=== PATIENT | female | born 1945 | race Caucasian/White ===

== ENCOUNTER 2017-02-16 17:13 | Inpatient (IN) | payer OTHER ==
[~2017-02-16] VITALS: Ht 167.6 cm; Wt 79.1 kg
[2017-02-16] MEDS ORDERED: SODIUM CHLORIDE 0.9% 1000ML 1,000 ML IV STA (17:22)
[2017-02-16] MEDS ORDERED: ONDANSETRON INJ 2 MG/ML 2 ML VIAL IV STA (17:22)
--- NOTE | 2017-02-16 17:53 | DIAGNOSTIC IMAGING REPORT ---
CHEST ONE VIEW PORTABLE CLINICAL HISTORY: Evaluate Fever/Sepsis dyspnea COMPARISON STUDY: No previous studies for comparison. FINDINGS: Right upper lobe infiltrate. Mild fullness mid mediastinum. Left lung is clear. Diaphragms smooth. IMPRESSION: Right upper lobe infiltrate Electronically signed by: Atif Leach M.D. 02/16/2017 5:52 PM Dictated Date/Time: 02/16/2017 5:52 PM
--- NOTE | 2017-02-16 18:06 | DIAGNOSTIC IMAGING REPORT ---
HEAD CT NONCONTRAST CT DOSE: 614.27 mGy.cm HISTORY: Fever Evaluate Fever/Sepsis TECHNIQUE: Multiaxial CT images of the head were performed without the use of intravenous contrast. Comparison: None. Findings: The paranasal sinuses and mastoid air cells are clear. Components of moderate chronic small vessel change. No acute intracranial hemorrhage. Ventricular system is midline. Impression: Age-related chronic small vessel change. No acute process. Electronically signed by: Atif Leach M.D. 02/16/2017 6:05 PM Dictated Date/Time: 02/16/2017 6:04 PM
[2017-02-16 18:14] LABS: BASO % 0.1 %; BASO ABS # 0.01 K/uL (0-0.2); EOS % 0.3 %; HEMATOCRIT 43.9 % (37-47); IG% 0.3 %; LYMPH % 3.5 %; LYMPH ABS # 0.66 K/uL (1.2-3.4); MEAN CELL VOLUME 88.5 fL (80-100); MEAN CORPUSCULAR HEMOGLOBIN 29.2 pg (25-34); MEAN PLATELET VOLUME 9.2 fL (7.4-10.4); MONO % 2.5 %; NEUT % 93.3 %; PLATELET COUNT 271 K/uL (130-400); RED BLOOD COUNT 4.96 M/uL (4.2-5.4); WHITE BLOOD COUNT 18.84 K/uL (4.8-10.8)
[2017-02-16] MEDS ORDERED: METOPROLOL TARTRATE 1 MG/ML VIAL IV STA (18:22)
[2017-02-16] MEDS ORDERED: PIPERACILLIN/TAZOBACTAM 3.375 GM/100ML D5W IV STA (18:25)
[2017-02-16 18:35] LABS: ALT/SGPT 26 U/L (12-78); ANISOCYTOSIS PRESENT; BLOOD UREA NITROGEN 15 mg/dl (7-18); BUN/CREATININE RATIO 8.8 (10-20); CALCIUM 9.8 mg/dl (8.5-10.1); CARBON DIOXIDE 25 mmol/L (21-32); CHLORIDE 103 mmol/L (98-107); COMPLETE YES; GLUCOSE 126 mg/dl (70-99); MAGNESIUM 1.7 mg/dl (1.8-2.4); POTASSIUM 3.9 mmol/L (3.5-5.1); SODIUM 138 mmol/L (136-145)
[2017-02-16 18:42] LABS: ALKALINE PHOSPHATASE 130 U/L (45-117); AST/SGOT 66 U/L (15-37)
[2017-02-16 18:43] LABS: PARTIAL THROMBOPLASTIN RATIO 1.1
[2017-02-16] MEDS ORDERED: NF656 TD (18:47)
[2017-02-16] MEDS ORDERED: ATOR-26 PO (18:47)
[2017-02-16] MEDS ORDERED: ACET-1311 PO (18:47)
[2017-02-16] MEDS ORDERED: DOCU100C31 PO (18:47)
[2017-02-16] MEDS ORDERED: PHEN300C PO (18:47)
[2017-02-16] MEDS ORDERED: INSU100I23 SQ (18:47)
[2017-02-16] MEDS ORDERED: RANI150T3 PO (18:47)
[2017-02-16 19:41] LABS: URINE APPEARANCE CLOUDY (CLEAR); URINE BILIRUBIN NEG (NEG); URINE COLOR YELLOW; URINE EPITHELIAL CELL AUTO >30 /lpf (0-5); URINE NITRITE NEG (NEG); URINE SPECIFIC GRAVITY 1.021 (1.000-1.030); UROBILINOGEN NEG (NEG); ZZURINE CULT IF INDIC CATH NO
--- NOTE | 2017-02-16 19:41 | EMERGENCY ROOM VISIT NOTE ---
History Report prepared by Neil: Shun Cole Under the Supervision of: Dr. Russ Silverman D.O. First contact with patient: 17:14 Chief Complaint: UNRESPONSIVE Stated Complaint: UNRESPONSIVE History of Present Illness The patient is a 71 year old female who presents to the Emergency Room via EMS with unresponsiveness that began 2 hours ago. This history is limited secondary to the patient's altered mental status. Per EMS, the patient recently got into [place]. She was at home with her neighbor when she became unresponsive. On the way to the hospital, she had an episode of emesis. This emesis was described as not very digested; however, she had not eaten since yesterday. According to the EMS staff, when she is moved, she tends to "jump," but is unresponsive other than that. She is currently hypertensive, tachycardic, hyperventilating, and febrile. At baseline, the patient is able to talk and take care of herself. She is a DNR patient who would like comfort measures only. She has a past medical history of acute stage four kidney cancer and diabetes. Source of History: EMS History Limited By: AMS Onset: 2 hours ago Position: other (global) Symptom Intensity: moderate Quality: other (Unresponsiveness) Timing: constant Associated Symptoms: + fevers Note: She is tachycardic, hyperventilating, and hypertensive. Review of Systems ROS limited secondary to the patient's altered mental status. Past Medical & Surgical Medical Problems: (1) Cancer of kidney (2) Diabetes (3) Respiratory failure, acute (4) Sepsis Family History Omitted secondary to age. Social History Smoking Status: Unknown if Ever Smoked Smokeless Tobacco Use: Unknown Occupation Status: retired Social History: Unable to obtain secondary to unresponsiveness. Current/Historical Medications Scheduled Atorvastatin (Lipitor), 80 MG PO DAILY Docusate Sodium (Docusate Sodium), 100 MG PO BID Insulin Glargine (Basaglar Kwikpen), 18 UNITS SQ HS Lidocaine (Lidoderm Patch 5%), 1 PATCH TD DAILY Phenytoin Sodium Extended (Phenytek), 300 MG PO HS Ranitidine Hcl (Zantac), 150 MG PO BID Scheduled PRN Acetaminophen (Tylenol), 325 MG PO Q6 PRN for Pain Allergies Coded Allergies: Morphine (Verified Allergy, Unknown, 0, 02/16/17) Physical Exam Vital Signs Date Time Temp Pulse Resp B/P (MAP) Pulse Ox O2 Delivery O2 Flow Rate FiO2 02/16/17 20:05 114 20 133/77 99 Nasal Cannula 4.0 02/16/17 19:02 113 24 127/90 94 Nasal Cannula 3.0 02/16/17 18:58 39.0 02/16/17 18:46 138 154/82 02/16/17 18:29 138 02/16/17 17:32 92 Room Air 02/16/17 17:23 37.8 140 24 180/101 92 Room Air Physical Exam CONSTITUTIONAL/VITAL SIGNS: Reviewed / noted above. GENERAL: Non-toxic in appearance. No acute distress. INTEGUMENTARY: Warm, dry, and [place]. HEAD: Normocephalic. EYES: without scleral icterus or trauma. ENT/OROPHARYNX: clear and moist. LYMPHADENOPATHY/NECK: Is supple without lymphadenopathy or meningismus. RESPIRATORY: Lungs clear and equal. CARDIOVASCULAR: Regular rate and rhythm. GI/ABDOMEN: Soft and nontender. No organomegaly or pulsatile mass. No rebound or guarding. Normal bowel sounds. EXTREMITIES: Warm and well perfused. BACK: No CVA tenderness. NEUROLOGICAL: Awake. Opens eyes spontaneously. Does not follow commands. Appears to be generally weak. Exam is limited secondary to inability to follow commands. Minimal verbal response from the patient. PSYCHIATRIC: normal affect. MUSCULOSKELETAL: Normally developed with good muscle tone. Medical Decision & Procedures ER Provider Diagnostic Interpretation: Radiology results as stated below per my review and radiologist interpretation: HEAD CT NONCONTRAST CT DOSE: 614.27 mGy.cm HISTORY: Fever Evaluate Fever/Sepsis TECHNIQUE: Multiaxial CT images of the head were performed without the use of intravenous contrast. Comparison: None. Findings: The paranasal sinuses and mastoid air cells are clear. Components of moderate chronic small vessel change. No acute intracranial hemorrhage. Ventricular system is midline. Impression: Age-related chronic small vessel change. No acute process. Electronically signed by: Atif Leach M.D. 02/16/2017 6:05 PM Dictated Date/Time: 02/16/2017 6:04 PM CHEST ONE VIEW PORTABLE CLINICAL HISTORY: Evaluate Fever/Sepsis dyspnea COMPARISON STUDY: No previous studies for comparison. FINDINGS: Right upper lobe infiltrate. Mild fullness mid mediastinum. Left lung is clear. Diaphragms smooth. IMPRESSION: Right upper lobe infiltrate Electronically signed by: Atif Leach M.D. 02/16/2017 5:52 PM Dictated Date/Time: 02/16/2017 5:52 PM Laboratory Results 02/16/17 17:54 Red Blood Count 4.96, Mean Corpuscular Volume 88.5, Mean Corpuscular Hemoglobin 29.2, Mean Corpuscular Hemoglobin Concent 33.0, Mean Platelet Volume 9.2, Neutrophils (%) (Auto) 93.3, Lymphocytes (%) (Auto) 3.5, Monocytes (%) (Auto) 2.5, Eosinophils (%) (Auto) 0.3, Basophils (%) (Auto) 0.1, Neutrophils # (Auto) 17.57, Lymphocytes # (Auto) 0.66, Monocytes # (Auto) 0.48, Eosinophils # (Auto) 0.06, Basophils # (Auto) 0.01 02/16/17 17:54 Test 02/16/17 17:54 02/16/17 18:06 02/16/17 19:02 02/16/17 19:51 White Blood Count 18.84 K/uL (4.8-10.8) Red Blood Count 4.96 M/uL (4.2-5.4) Hemoglobin 14.5 g/dL (12.0-16.0) Hematocrit 43.9 % (37-47) Mean Corpuscular Volume 88.5 fL (80-100) Mean Corpuscular Hemoglobin 29.2 pg (25-34) Mean Corpuscular Hemoglobin Concent 33.0 g/dl (32-36) Platelet Count 271 K/uL (130-400) Mean Platelet Volume 9.2 fL (7.4-10.4) Neutrophils (%) (Auto) 93.3 % Lymphocytes (%) (Auto) 3.5 % Monocytes (%) (Auto) 2.5 % Eosinophils (%) (Auto) 0.3 % Basophils (%) (Auto) 0.1 % Neutrophils # (Auto) 17.57 K/uL (1.4-6.5) Lymphocytes # (Auto) 0.66 K/uL (1.2-3.4) Monocytes # (Auto) 0.48 K/uL (0.11-0.59) Eosinophils # (Auto) 0.06 K/uL (0-0.5) Basophils # (Auto) 0.01 K/uL (0-0.2) RDW Standard Deviation 68.3 fL (36.4-46.3) RDW Coefficient of Variation 21.8 % (11.5-14.5) Immature Granulocyte % (Auto) 0.3 % Immature Granulocyte # (Auto) 0.06 K/uL (0.00-0.02) Anisocytosis PRESENT Prothrombin Time 11.0 SECONDS (9.0-12.0) Prothromb Time International Ratio 1.0 (0.9-1.1) Activated Partial Thromboplast Time 28.2 SECONDS (21.0-31.0) Partial Thromboplastin Ratio 1.1 Anion Gap 10.0 mmol/L (3-11) Estimated GFR () 34.8 Estimated GFR (Non- 30.0 BUN/Creatinine Ratio 8.8 (10-20) Lactic Acid Level 1.4 mmol/L (0.4-2.0) Calcium Level 9.8 mg/dl (8.5-10.1) Magnesium Level 1.7 mg/dl (1.8-2.4) Total Bilirubin 0.3 mg/dl (0.2-1) Direct Bilirubin 0.1 mg/dl (0-0.2) Aspartate Amino Transf (AST/SGOT) 66 U/L (15-37) Alanine Aminotransferase (ALT/SGPT) 26 U/L (12-78) Alkaline Phosphatase 130 U/L (45-117) Ammonia < 10.0 umol/L (11-32) Total Creatine Kinase 26 U/L (26-192) Creatine Kinase MB < 0.5 ng/ml (0.5-3.6) Creatine Kinase MB Ratio (0-3.0) Troponin I 0.020 ng/ml (0-0.045) Total Protein 8.0 gm/dl (6.4-8.2) Albumin 2.7 gm/dl (3.4-5.0) Lipase 83 U/L (73-393) Thyroid Stimulating Hormone (TSH) 2.090 uIu/ml (0.300-4.500) Phenytoin (Dilantin) Level 1.9 mcg/mL (10-20) Urine Color YELLOW Urine Appearance CLOUDY (CLEAR) Urine pH 5.0 (4.5-7.5) Urine Specific [place] 1.021 (1.000-1.030) Urine Protein 2+ (NEG) Urine Glucose (UA) NEG (NEG) Urine Ketones 1+ (NEG) Urine Occult Blood NEG (NEG) Urine Nitrite NEG (NEG) Urine Bilirubin NEG (NEG) Urine Urobilinogen NEG (NEG) Urine Leukocyte Esterase NEG (NEG) Urine WBC (Auto) 1-5 /hpf (0-5) Urine RBC (Auto) 0-4 /hpf (0-4) Urine Hyaline Casts (Auto) 1-5 /lpf (0-5) Urine Epithelial Cells (Auto) >30 /lpf (0-5) Urine Bacteria (Auto) NEG (NEG) Laboratory results as stated above per my review. Medications Administered Medications (Trade) Dose Ordered Sig/Toney Route Start Time Stop Time Status Last Admin Dose Admin Sodium Chloride 1,000 ml @ 999 mls/hr Q1H1M STAT IV 02/16/17 17:22 02/16/17 18:22 DC 02/16/17 18:45 999 MLS/HR Ondansetron HCl (Zofran Inj) 4 mg NOW STAT IV 02/16/17 17:22 02/16/17 17:24 DC 02/16/17 18:45 4 MG Metoprolol Tartrate (Lopressor Iv) 5 mg NOW STAT IV 02/16/17 18:22 02/16/17 18:23 DC 02/16/17 18:46 5 MG Piperacillin Sod/ Tazobactam Sod (Zosyn Iv) 3.375 gm NOW STAT IV 02/16/17 18:25 02/16/17 18:26 DC 02/16/17 19:04 3.375 GM Acetaminophen 100 ml @ 400 mls/hr TODAY@2000 IV 02/16/17 20:00 02/16/17 23:59 02/16/17 20:20 400 MLS/HR ECG Indication: altered mental status Rate (beats per minute): 140 Rhythm: sinus tachycardia Findings: T-wave inversion (Lateral), no acute ischemic change, no ectopy ED Course 1714: Previous medical records were reviewed. The patient was evaluated in room B12B. A complete history and physical examination was performed. 1722: Ordered Zofran Inj 4 mg IV, Sodium Chloride 1000 ml @ 999 mls/hr IV 1750: I was informed by the nurse that the family has arrived and updated the patient's story. She was fine this morning. Everything was at baseline and normal. Her soon said earlier, she drank some soda, and took a nap. He noticed she was shaking in bed, so he woke her up. She then said she was cold, so he got her a blanket. 1821: Ordered Lopressor Iv 5 mg IV 1824: Ordered Zosyn Iv 3.375 IV 1941: On reevaluation, the patient is stable. I discussed the results and findings with her family. They verbalized agreement of the treatment plan. I spoke with Dr. Flood of the [facility]. The patient will be evaluated for further management and care. Medical Decision Differential diagnosis: Etiologies such as metabolic, infection, hypoglycemia, electrolyte abnormalities , cardiac sources, intracerebral event, toxicologic, neurologic, as well as others were entertained. Medication Reconciliation: I attest that I have personally reviewed the patient' s current medication list. This is a 71-year-old female who presents to the ED with a chief complaint of altered mental status. According to EMS, the patient is normally awake and alert and functioning. The patient is currently living with family locally. The patient just got here 2 days ago. Today she went to see Dr. 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 The patient was awake, alert and oriented this morning. The patient normally gets around with a walker. This afternoon, the patient had some riders and was tired. She wanted to rest. She then had an episode of emesis and was altered since that time. She is brought here by EMS. Prehospital blood sugar was normal. The patient has a fever here 39. She opens her eyes spontaneously but does not respond verbally does not follow commands. Lungs are diminished. Heart rate was tachycardic. Abdomen soft and nontender. EKG showed a sinus tach at a rate of 140. This improved after 5 mg IV Lopressor. Her blood pressure was hypertensive. Chest x-ray shows findings suggestive of a right lower lobe infiltrate. A CT scan of the brain did not show acute process. The CBC was 18.8. Troponin is negative. The patient's urine is pending. The patient was treated with IV fluids and IV Zosyn and IV Zofran and she will be seen by the hospitalist for further inpatient evaluation and care.. Consults Time Called: 1939 Consulting Physician: Dr. Aleena Alvarez Hospitalist Returned Call: 1941 He will be evaluating the patient for further care and management. Impression Primary Impression: Pneumonia Additional Impressions: Fever Altered mental state Scribe Attestation The scribe's documentation has been prepared under my direction and personally reviewed by me in its entirety. I confirm that the note above accurately reflects all work, treatment, procedures, and medical decision making performed by me. Departure Information Dispostion Being Evaluated By Hospitalist Patient Instructions [facility] Problem Qualifiers
[2017-02-16 19:42] LABS: MANUAL MICROSCOPIC REQUIRED? NO; REVIEW REQ? NO
[2017-02-16] MEDS ORDERED: ACETAMINOPHEN IV 100 ML IV SCH (20:00)
[2017-02-16 21:00] LABS: ALLEN TEST POS (POS); ARTERIAL BLD GAS O2 SATURATION 92.4 % (90-95); ARTERIAL BLOOD GAS BASE EXCESS 0.3 mEq/L (-9-1.8); ARTERIAL BLOOD GAS HCO3 24 mmol/L (19-24); ARTERIAL BLOOD GAS PO2 66 mm/Hg (80-95); ARTERIAL BLOOD GAS pH 7.43 (7.35-7.45); O2 ADMINISTRATION ROOM AIR
[2017-02-16] MEDS ORDERED: INSULIN GLARGINE SOLOSTAR 100 UNITS/ML 3 ML PEN SQ ONE (21:04)
[2017-02-16] MEDS ORDERED: LEVALBUTEROL/IPRATROPIUM NEB INH STA (21:04)
[2017-02-16] MEDS ORDERED: INSULIN ASPART 100 UNITS/ML 3 ML PEN SC ONE (21:13)
[2017-02-16] MEDS ORDERED: NSS + 20MEQ KCL 1000ML 1,000 ML IV ONE (21:15)
[2017-02-16] MEDS ORDERED: LEVALBUTEROL/IPRATROPIUM NEB INH PRN (21:15)
[2017-02-16] MEDS ORDERED: DEXTROSE 50% 50 ML SYR IV PRN ×3 (21:15)
[2017-02-16] MEDS ORDERED: ACETAMINOPHEN 325 MG TAB PO PRN ×2 (21:15)
[2017-02-16] MEDS ORDERED: GLUCOSE 40% GEL 15 GM TUBE PO PRN ×3 (21:15)
[2017-02-16] MEDS ORDERED: HYDROmorphone INJ 0.5 MG/0.5 ML SYR IV PRN (21:15)
[2017-02-16] MEDS ORDERED: OXYCODONE/ACETAMINOPHEN 5-325 TAB PO PRN (21:15)
[2017-02-16] MEDS ORDERED: GLUCOSE 10 TABS/TUBE PO PRN ×3 (21:15)
[2017-02-16] MEDS ORDERED: GLUCAGON FOR INJ 1 MG VIAL SQ PRN ×3 (21:15)
[2017-02-16] MEDS ORDERED: ONDANSETRON INJ 2 MG/ML 2 ML VIAL IV PRN (21:15)
[2017-02-16] MEDS ORDERED: PHENYTOIN IV 1,000 MG in SYRINGE 0 ML IV ONE (21:30)
[2017-02-16] MEDS ORDERED: LORAZEPAM INJ 1 MG in SYRINGE 0.5 ML IV PRN (21:30)
[2017-02-16] MEDS ORDERED: LEVALBUTEROL 1.25MG/0.5ML NEB INH STA (21:42)
[2017-02-16] MEDS ORDERED: IPRATROPIUM BROMIDE NEB SOLN 0.02% 2.5 ML VIAL INH STA (21:42)
[2017-02-16 21:45] VITALS: BP 98/61; PULSE 101; TEMP 36.8; O2SAT 88
[2017-02-16] MEDS ORDERED: IPRATROPIUM BROMIDE NEB SOLN 0.02% 2.5 ML VIAL INH PRN (21:45)
[2017-02-16] MEDS ORDERED: LEVALBUTEROL 1.25MG/0.5ML NEB INH PRN (21:45)
[2017-02-16 21:53] VITALS: BP 98/61; PULSE 101; TEMP 36.8; BMI 27.3
[2017-02-16] MEDS ORDERED: METHYLPREDNISOLONE IV 40 MG in SYRINGE 0 ML IV ONE (22:00)
[2017-02-16] MEDS ORDERED: PHENYTOIN IV INFUSION 1,000 MG in SODIUM CHLORIDE 0.9% 100ML 100 ML IV ONE (22:15)
[2017-02-16 23:11] VITALS: PULSE 83; O2SAT 93
[2017-02-17] MEDS: PIPERACILL/TAZOBAC IV 3.375 GM in DEXTROSE 5% 100ML IV SCH ×4 (00:22→23:44)
--- NOTE | 2017-02-17 01:47 | History and Physical ---
History & Physical Date & Time of Service: Feb 17, 2017 at 01:43 Chief Complaint: "my cancer" as per px decreased responsiveness, emesis as per family Primary Care Physician: Dr Yohana Melendez History of Present Illness Source: patient, family, clinic records Recent confinement 2 weeks ago at [place], [place] for unresponsiveness. As per daughter, patient was intubated for airway protection. MRI showed new brain metastases from renal cell cancer. Patient was also thought to have had a seizure. Discharge on Dilantin prescription. Unable to comply. Patient moved to [facility] to be cared for by her daughter. Arrangements for home hospice had been initiated by new PCPs office. Yesterday afternoon patient noted by brother to have decreased responsiveness. Patient subsequently woke up had emesis episodes. At the ER patient given Zosyn for pneumonia. Patient currently more awake but disoriented. Past Medical/Surgical History Medical Problems: (1) Cancer of kidney Status: Chronic (2) Diabetes Status: Chronic Social History Smoking Status: Former Smoker Smokeless Tobacco Use: Unknown Alcohol Use: none Occupational Status: retired (could not be reliably obtained) Allergies Coded Allergies: Morphine (Verified Allergy, Unknown, 0, 02/16/17) Home Medications Scheduled Atorvastatin (Lipitor), 80 MG PO DAILY Docusate Sodium (Docusate Sodium), 100 MG PO BID Insulin Glargine (Basaglar Kwikpen), 18 UNITS SQ HS Lidocaine (Lidoderm Patch 5%), 1 PATCH TD DAILY Phenytoin Sodium Extended (Phenytek), 300 MG PO HS Ranitidine Hcl (Zantac), 150 MG PO BID Scheduled PRN Acetaminophen (Tylenol), 325 MG PO Q6 PRN for Pain Physical Exam Vital Signs Date Time Temp Pulse Resp B/P (MAP) Pulse Ox O2 Delivery O2 Flow Rate FiO2 02/16/17 23:11 83 18 93 Room Air 02/16/17 21:53 36.8 101 16 98/61 Room Air 02/16/17 21:45 36.8 101 16 98/61 (73) 88 02/16/17 21:19 94 Room Air 02/16/17 21:05 37.8 110 22 123/73 02/16/17 20:05 114 20 133/77 99 Nasal Cannula 4.0 02/16/17 19:02 113 24 127/90 94 Nasal Cannula 3.0 02/16/17 18:58 39.0 02/16/17 18:46 138 154/82 02/16/17 18:29 138 02/16/17 17:32 92 Room Air 02/16/17 17:23 37.8 140 24 180/101 92 Room Air General Appearance: no apparent distress, + pertinent finding (disoriented, looks younger than stated age) Head: normocephalic Eyes: sclerae normal Neck: supple Respiratory/Chest: + decreased breath sounds Cardiovascular: + tachycardia Abdomen/GI: soft Neurologic/Psych: + disoriented Skin: normal color Diagnostics Laboratory Results Results Past 24 Hours Test 02/16/17 17:54 02/16/17 18:06 02/16/17 19:02 02/16/17 20:21 Range/Units White Blood Count 18.84 4.8-10.8 K/uL Red Blood Count 4.96 4.2-5.4 M/uL Hemoglobin 14.5 12.0-16.0 g/dL Hematocrit 43.9 37-47 % Mean Corpuscular Volume 88.5 80-100 fL Mean Corpuscular Hemoglobin 29.2 25-34 pg Mean Corpuscular Hemoglobin Concent 33.0 32-36 g/dl Platelet Count 271 130-400 K/uL Mean Platelet Volume 9.2 7.4-10.4 fL Neutrophils (%) (Auto) 93.3 % Lymphocytes (%) (Auto) 3.5 % Monocytes (%) (Auto) 2.5 % Eosinophils (%) (Auto) 0.3 % Basophils (%) (Auto) 0.1 % Neutrophils # (Auto) 17.57 1.4-6.5 K/uL Lymphocytes # (Auto) 0.66 1.2-3.4 K/uL Monocytes # (Auto) 0.48 0.11-0.59 K/uL Eosinophils # (Auto) 0.06 0-0.5 K/uL Basophils # (Auto) 0.01 0-0.2 K/uL RDW Standard Deviation 68.3 36.4-46.3 fL RDW Coefficient of Variation 21.8 11.5-14.5 % Immature Granulocyte % (Auto) 0.3 % Immature Granulocyte # (Auto) 0.06 0.00-0.02 K/uL Anisocytosis PRESENT Prothrombin Time 11.0 9.0-12.0 SECONDS Prothromb Time International Ratio 1.0 0.9-1.1 Activated Partial Thromboplast Time 28.2 21.0-31.0 SECONDS Partial Thromboplastin Ratio 1.1 Sodium Level 138 136-145 mmol/L Potassium Level 3.9 3.5-5.1 mmol/L Chloride Level 103 98-107 mmol/L Carbon Dioxide Level 25 21-32 mmol/L Anion Gap 10.0 3-11 mmol/L Blood Urea Nitrogen 15 7-18 mg/dl Creatinine 1.70 0.60-1.20 mg/dl Estimated GFR () 34.8 Estimated GFR (Non- 30.0 BUN/Creatinine Ratio 8.8 10-20 Random Glucose 126 70-99 mg/dl Lactic Acid Level 1.4 0.4-2.0 mmol/L Calcium Level 9.8 8.5-10.1 mg/dl Magnesium Level 1.7 1.8-2.4 mg/dl Total Bilirubin 0.3 0.2-1 mg/dl Direct Bilirubin 0.1 0-0.2 mg/dl Aspartate Amino Transf (AST/SGOT) 66 15-37 U/L Alanine Aminotransferase (ALT/SGPT) 26 12-78 U/L Alkaline Phosphatase 130 45-117 U/L Ammonia < 10.0 11-32 umol/L Total Creatine Kinase 26 26-192 U/L Creatine Kinase MB < 0.5 0.5-3.6 ng/ml Creatine Kinase MB Ratio 0-3.0 Troponin I 0.020 0-0.045 ng/ml Total Protein 8.0 6.4-8.2 gm/dl Albumin 2.7 3.4-5.0 gm/dl Lipase 83 73-393 U/L Thyroid Stimulating Hormone (TSH) 2.090 0.300-4.500 uIu/ml Phenytoin (Dilantin) Level 1.9 10-20 mcg/mL Urine Color YELLOW Urine Appearance CLOUDY CLEAR Urine pH 5.0 4.5-7.5 Urine Specific [place] 1.021 1.000-1.030 Urine Protein 2+ NEG Urine Glucose (UA) NEG NEG Urine Ketones 1+ NEG Urine Occult Blood NEG NEG Urine Nitrite NEG NEG Urine Bilirubin NEG NEG Urine Urobilinogen NEG NEG Urine Leukocyte Esterase NEG NEG Urine WBC (Auto) 1-5 0-5 /hpf Urine RBC (Auto) 0-4 0-4 /hpf Urine Hyaline Casts (Auto) 1-5 0-5 /lpf Urine Epithelial Cells (Auto) >30 0-5 /lpf Urine Bacteria (Auto) NEG NEG Arterial Blood pH 7.43 7.35-7.45 Arterial Blood Partial Pressure CO2 37 35-46 mmHg Arterial Blood Partial Pressure O2 66 80-95 mm/Hg Arterial Blood HCO3 24 19-24 mmol/L Arterial Blood Oxygen Saturation 92.4 90-95 % Arterial Blood Base Excess 0.3 -9-1.8 mEq/L Arterial Blood Gas Delivery ROOM AIR Jerel Test POS POS Test 02/16/17 22:09 02/16/17 23:05 Range/Units Bedside Glucose 134 134 70-90 mg/dl Microbiology Results 02/16/17 Blood Culture, Received Pending 02/16/17 Blood Culture, Received Pending Diagnostic Radiology CT head no acute pathology other (infiltrate left) EKG As per my interpretation : Rate 140 sinus tachycardia LAD LAFB poor R-wave progression downsloping ST depression lateral leads other Impression Assessment and Plan A/P Severe sepsis SIRS plus hypoxemia plus encephalopathy 2 to HCAP/poss aspiration pneumonia RCCA L sp surgery new frontal lobe mets found out during recent confinement at [place], [place] decreased responsiveness ? possible breakthrough seizure subtx Dilantin level 2 to inability to take meds post hospital dc abnormal kidney function ? unknown duration DM2, insulin requiring BGs reasonable unknown baseline control past tobacco abuse GMF CS, IVF, Zosyn supplemental O2 nebs prn solumedrol 1 dose Dilantin load, recheck level in AM ff renal function retrieve records of recent confinement from [facility] basal insulin, ISS BG goal 140-180, check HgA1c Social Service RE DC planning, facilitate arrangements for home hospice DVT prophylaxis SCDS re brain tumor DNR as per px's previous wishes as per daughter, Miss Sherman Wednesday. VTE Prophylaxis VTE Risk Assessment Done? Y/N: Yes Risk Level: Moderate
[2017-02-17] MEDS ORDERED: IPRATROPIUM BROMIDE NEB SOLN 0.02% 2.5 ML VIAL INH SCH (03:00)
[2017-02-17] MEDS ORDERED: LEVALBUTEROL/IPRATROPIUM NEB INH SCH (03:00)
[2017-02-17] MEDS ORDERED: LEVALBUTEROL 1.25MG/0.5ML NEB INH SCH (03:00)
[2017-02-17 06:14] LABS: BASO % 0.1 %; BASO ABS # 0.02 K/uL (0-0.2); IG% 0.3 %; LYMPH % 2.9 %; LYMPH ABS # 0.57 K/uL (1.2-3.4); MEAN CORPUSCULAR HEMOGLOBIN 28.6 pg (25-34); MEAN CORPUSCULAR HGB CONC 32.1 g/dl (32-36); MEAN PLATELET VOLUME 9.4 fL (7.4-10.4); MONO % 4.7 %; PLATELET COUNT 251 K/uL (130-400); RED BLOOD COUNT 4.27 M/uL (4.2-5.4); WHITE BLOOD COUNT 19.44 K/uL (4.8-10.8)
[2017-02-17] MEDS ORDERED: NURSING DECISION MEDICATION ORDER SCH (06:15)
[2017-02-17] MEDS ORDERED: MICONAZOLE NITRATE POWDER 43 GM EXT PRN (06:15)
[2017-02-17 06:25] VITALS: BMI 28.3
[2017-02-17 06:28] LABS: ESTIMATED AVERAGE GLUCOSE 160 mg/dl; HA1C FLAG Normal (Normal)
[2017-02-17] MEDS ORDERED: INSULIN ASPART 100 UNITS/ML 3 ML PEN SC SCH (06:30)
[2017-02-17 06:43] LABS: ANISOCYTOSIS PRESENT; BUN/CREATININE RATIO 9.8 (10-20); CALCIUM 9.3 mg/dl (8.5-10.1); COMPLETE YES; CREATININE 1.8 mg/dl (0.60-1.20)
[2017-02-17 07:07] VITALS: BP 106/69; PULSE 85; TEMP 36.5; O2SAT 92
[2017-02-17] MEDS: DOCUSATE SODIUM 100 MG CAP PO SCH ×2 (07:58→20:23)
[2017-02-17] MEDS: ATORVASTATIN 40 MG TAB PO SCH (07:59)
[2017-02-17] MEDS: RANITIDINE HCL 150 MG TAB PO SCH ×2 (07:59→20:23)
[2017-02-17] MEDS ORDERED: INSULIN GLARGINE SOLOSTAR 100 UNITS/ML 3 ML PEN SQ SCH ×2 (08:00→21:00)
[2017-02-17] MEDS: LIDODERM (LIDOCAINE) PATCH 5% TD SCH (08:00)
[2017-02-17 08:30] VITALS: O2SAT 92
[2017-02-17] MEDS ORDERED: PIPERACILL/TAZOBAC CONSULT ACTIVE PRN (09:00)
[2017-02-17] MEDS: INSULIN ASPART 100 UNITS/ML 3 ML PEN SC SCH ×4 (09:06→21:32)
[2017-02-17 11:10] VITALS: BP 96/61; PULSE 87; TEMP 36.2; O2SAT 97
[2017-02-17 14:39] VITALS: BP 100/63; PULSE 91; TEMP 36.8; O2SAT 94
--- NOTE | 2017-02-17 14:44 | Progress Note ---
Medicine Progress Note Date & Time of Visit: Feb 17, 2017 at 11:29. 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 She recently moved to [place] after receiving a poor prognosis with respect to her cancer and had moved in with one of her children; Home Hospice was in process prior to admission. In the ER she was foudn to have a pneumonia and with recently being admitted to a hospital in [place], she was started on Zosyn fro HCAP empirically. She is feeling well today and reports no recent h/o coughing, fevers, chills, SOB, chest pain or feeling ill at all. She is a very poor historian, however, and keeps changing her story. I have tried to contact her family and left my cell number but have not heard back yet. Currently denies any pain, fevers, chills, cough, SOB, chest pain, etc. poor historian for one moment thought she was at [facility] in [place] but then corrected herself seems to have trouble finding words. ?if ambulatory but states that she typically gets around with a walker. Objective Last 8 Hrs Date Time Temp Pulse Resp B/P (MAP) Pulse Ox O2 Delivery O2 Flow Rate FiO2 02/17/17 11:10 36.2 87 18 96/61 (73) 97 Room Air 02/17/17 07:07 36.5 85 20 106/69 (81) 92 Room Air Physical Exam: GEN: WNWD, in no acute distress, alert and appropriate HEENT: NC/AT, PERRL, normal sclerae, EOMI, MMM CARDIO: reg rate, S1/2 heard without m/g/r LUNGS: CTA bilaterally, no crackles, rales or wheezes, good diaphragmatic excursion ABD: soft, non-tender, non-distended, no rebound or guarding, +BS EXTREMITY: RP and DP palpable 2+ bilat, no LE swelling or edema, extremities are warm and well-perfused NEURO: CN 2-12 grossly intact, EOMI, sensation intact throughout, coordination- finger to nose was difficult for her to follow instructions on but she could perform it correctly. (reflexes) BR 2/4 bilat, knee 2/4 bilat MUSC: 5/5 strength throughout, no focal deficits SKIN: warm and dry Laboratory Results: 02/17/17 05:21 Red Blood Count 4.27, Mean Corpuscular Volume 89.0, Mean Corpuscular Hemoglobin 28.6, Mean Corpuscular Hemoglobin Concent 32.1, Mean Platelet Volume 9.4, Neutrophils (%) (Auto) 92.0, Lymphocytes (%) (Auto) 2.9, Monocytes (%) (Auto) 4.7, Eosinophils (%) (Auto) 0.0, Basophils (%) (Auto) 0.1, Neutrophils # (Auto) 17.88, Lymphocytes # (Auto) 0.57, Monocytes # (Auto) 0.92, Eosinophils # (Auto) 0.00, Basophils # (Auto) 0.02 02/17/17 05:21 Test 02/16/17 17:54 02/16/17 18:06 02/16/17 19:02 02/16/17 19:54 Prothrombin Time 11.0 SECONDS (9.0-12.0) Prothromb Time International Ratio 1.0 (0.9-1.1) Activated Partial Thromboplast Time 28.2 SECONDS (21.0-31.0) Partial Thromboplastin Ratio 1.1 Magnesium Level 1.7 mg/dl (1.8-2.4) Total Bilirubin 0.3 mg/dl (0.2-1) Direct Bilirubin 0.1 mg/dl (0-0.2) Aspartate Amino Transf (AST/SGOT) 66 U/L (15-37) Alanine Aminotransferase (ALT/SGPT) 26 U/L (12-78) Alkaline Phosphatase 130 U/L (45-117) Ammonia < 10.0 umol/L (11-32) Total Creatine Kinase 26 U/L (26-192) Creatine Kinase MB < 0.5 ng/ml (0.5-3.6) Creatine Kinase MB Ratio (0-3.0) Troponin I 0.020 ng/ml (0-0.045) Total Protein 8.0 gm/dl (6.4-8.2) Albumin 2.7 gm/dl (3.4-5.0) Lipase 83 U/L (73-393) Thyroid Stimulating Hormone (TSH) 2.090 uIu/ml (0.300-4.500) Estimated Average Glucose 160 mg/dl Hemoglobin A1c 7.2 % (4.5-5.6) Urine Color YELLOW Urine Appearance CLOUDY (CLEAR) Urine pH 5.0 (4.5-7.5) Urine Specific [place] 1.021 (1.000-1.030) Urine Protein 2+ (NEG) Urine Glucose (UA) NEG (NEG) Urine Ketones 1+ (NEG) Urine Occult Blood NEG (NEG) Urine Nitrite NEG (NEG) Urine Bilirubin NEG (NEG) Urine Urobilinogen NEG (NEG) Urine Leukocyte Esterase NEG (NEG) Urine WBC (Auto) 1-5 /hpf (0-5) Urine RBC (Auto) 0-4 /hpf (0-4) Urine Hyaline Casts (Auto) 1-5 /lpf (0-5) Urine Epithelial Cells (Auto) >30 /lpf (0-5) Urine Bacteria (Auto) NEG (NEG) Lactic Acid Level 1.4 mmol/L (0.4-2.0) Test 02/16/17 20:21 02/17/17 05:21 02/17/17 11:32 Arterial Blood pH 7.43 (7.35-7.45) Arterial Blood Partial Pressure CO2 37 mmHg (35-46) Arterial Blood Partial Pressure O2 66 mm/Hg (80-95) Arterial Blood HCO3 24 mmol/L (19-24) Arterial Blood Oxygen Saturation 92.4 % (90-95) Arterial Blood Base Excess 0.3 mEq/L (-9-1.8) Arterial Blood Gas Delivery ROOM AIR Jerel Test POS (POS) White Blood Count 19.44 K/uL (4.8-10.8) Red Blood Count 4.27 M/uL (4.2-5.4) Hemoglobin 12.2 g/dL (12.0-16.0) Hematocrit 38.0 % (37-47) Mean Corpuscular Volume 89.0 fL (80-100) Mean Corpuscular Hemoglobin 28.6 pg (25-34) Mean Corpuscular Hemoglobin Concent 32.1 g/dl (32-36) Platelet Count 251 K/uL (130-400) Mean Platelet Volume 9.4 fL (7.4-10.4) Neutrophils (%) (Auto) 92.0 % Lymphocytes (%) (Auto) 2.9 % Monocytes (%) (Auto) 4.7 % Eosinophils (%) (Auto) 0.0 % Basophils (%) (Auto) 0.1 % Neutrophils # (Auto) 17.88 K/uL (1.4-6.5) Lymphocytes # (Auto) 0.57 K/uL (1.2-3.4) Monocytes # (Auto) 0.92 K/uL (0.11-0.59) Eosinophils # (Auto) 0.00 K/uL (0-0.5) Basophils # (Auto) 0.02 K/uL (0-0.2) RDW Standard Deviation 69.4 fL (36.4-46.3) RDW Coefficient of Variation 22.0 % (11.5-14.5) Immature Granulocyte % (Auto) 0.3 % Immature Granulocyte # (Auto) 0.05 K/uL (0.00-0.02) Anisocytosis PRESENT Anion Gap 10.0 mmol/L (3-11) Est Creatinine Clear Calc Drug Dose 30.9 ml/min Estimated GFR () 32.5 Estimated GFR (Non- 28.0 BUN/Creatinine Ratio 9.8 (10-20) Calcium Level 9.3 mg/dl (8.5-10.1) Phenytoin (Dilantin) Level 10.5 mcg/mL (10-20) Bedside Glucose 192 mg/dl (70-90) Date/Time Source Procedure Growth Status 02/16/17 17:54 Blood Blood Culture Pending Received Last 24 Hours Test 02/16/17 17:54 02/16/17 18:06 02/16/17 19:02 02/16/17 19:54 White Blood Count 18.84 K/uL Red Blood Count 4.96 M/uL Hemoglobin 14.5 g/dL Hematocrit 43.9 % Mean Corpuscular Volume 88.5 fL Mean Corpuscular Hemoglobin 29.2 pg Mean Corpuscular Hemoglobin Concent 33.0 g/dl Platelet Count 271 K/uL Mean Platelet Volume 9.2 fL Neutrophils (%) (Auto) 93.3 % Lymphocytes (%) (Auto) 3.5 % Monocytes (%) (Auto) 2.5 % Eosinophils (%) (Auto) 0.3 % Basophils (%) (Auto) 0.1 % Neutrophils # (Auto) 17.57 K/uL Lymphocytes # (Auto) 0.66 K/uL Monocytes # (Auto) 0.48 K/uL Eosinophils # (Auto) 0.06 K/uL Basophils # (Auto) 0.01 K/uL RDW Standard Deviation 68.3 fL RDW Coefficient of Variation 21.8 % Immature Granulocyte % (Auto) 0.3 % Immature Granulocyte # (Auto) 0.06 K/uL Anisocytosis PRESENT Prothrombin Time 11.0 SECONDS Prothromb Time International Ratio 1.0 Activated Partial Thromboplast Time 28.2 SECONDS Partial Thromboplastin Ratio 1.1 Sodium Level 138 mmol/L Potassium Level 3.9 mmol/L Chloride Level 103 mmol/L Carbon Dioxide Level 25 mmol/L Anion Gap 10.0 mmol/L Blood Urea Nitrogen 15 mg/dl Creatinine 1.70 mg/dl Estimated GFR () 34.8 Estimated GFR (Non- 30.0 BUN/Creatinine Ratio 8.8 Random Glucose 126 mg/dl Calcium Level 9.8 mg/dl Magnesium Level 1.7 mg/dl Total Bilirubin 0.3 mg/dl Direct Bilirubin 0.1 mg/dl Aspartate Amino Transf (AST/SGOT) 66 U/L Alanine Aminotransferase (ALT/SGPT) 26 U/L Alkaline Phosphatase 130 U/L Ammonia < 10.0 umol/L Total Creatine Kinase 26 U/L Creatine Kinase MB < 0.5 ng/ml Creatine Kinase MB Ratio Troponin I 0.020 ng/ml Total Protein 8.0 gm/dl Albumin 2.7 gm/dl Lipase 83 U/L Thyroid Stimulating Hormone (TSH) 2.090 uIu/ml Estimated Average Glucose 160 mg/dl Hemoglobin A1c 7.2 % Urine Color YELLOW Urine Appearance CLOUDY Urine pH 5.0 Urine Specific [place] 1.021 Urine Protein 2+ Urine Glucose (UA) NEG Urine Ketones 1+ Urine Occult Blood NEG Urine Nitrite NEG Urine Bilirubin NEG Urine Urobilinogen NEG Urine Leukocyte Esterase NEG Urine WBC (Auto) 1-5 /hpf Urine RBC (Auto) 0-4 /hpf Urine Hyaline Casts (Auto) 1-5 /lpf Urine Epithelial Cells (Auto) >30 /lpf Urine Bacteria (Auto) NEG Lactic Acid Level 1.4 mmol/L Phenytoin (Dilantin) Level 1.9 mcg/mL Test 02/16/17 20:21 02/16/17 22:09 02/16/17 23:05 02/17/17 05:21 Arterial Blood pH 7.43 Arterial Blood Partial Pressure CO2 37 mmHg Arterial Blood Partial Pressure O2 66 mm/Hg Arterial Blood HCO3 24 mmol/L Arterial Blood Oxygen Saturation 92.4 % Arterial Blood Base Excess 0.3 mEq/L Arterial Blood Gas Delivery ROOM AIR Jerel Test POS Bedside Glucose 134 mg/dl 134 mg/dl White Blood Count 19.44 K/uL Red Blood Count 4.27 M/uL Hemoglobin 12.2 g/dL Hematocrit 38.0 % Mean Corpuscular Volume 89.0 fL Mean Corpuscular Hemoglobin 28.6 pg Mean Corpuscular Hemoglobin Concent 32.1 g/dl Platelet Count 251 K/uL Mean Platelet Volume 9.4 fL Neutrophils (%) (Auto) 92.0 % Lymphocytes (%) (Auto) 2.9 % Monocytes (%) (Auto) 4.7 % Eosinophils (%) (Auto) 0.0 % Basophils (%) (Auto) 0.1 % Neutrophils # (Auto) 17.88 K/uL Lymphocytes # (Auto) 0.57 K/uL Monocytes # (Auto) 0.92 K/uL Eosinophils # (Auto) 0.00 K/uL Basophils # (Auto) 0.02 K/uL RDW Standard Deviation 69.4 fL RDW Coefficient of Variation 22.0 % Immature Granulocyte % (Auto) 0.3 % Immature Granulocyte # (Auto) 0.05 K/uL Anisocytosis PRESENT Sodium Level 140 mmol/L Potassium Level 4.0 mmol/L Chloride Level 106 mmol/L Carbon Dioxide Level 24 mmol/L Anion Gap 10.0 mmol/L Blood Urea Nitrogen 18 mg/dl Creatinine 1.80 mg/dl Est Creatinine Clear Calc Drug Dose 30.9 ml/min Estimated GFR () 32.5 Estimated GFR (Non- 28.0 BUN/Creatinine Ratio 9.8 Random Glucose 189 mg/dl Calcium Level 9.3 mg/dl Phenytoin (Dilantin) Level 10.5 mcg/mL Test 02/17/17 07:42 Bedside Glucose 158 mg/dl Date/Time Source Procedure Growth Status 02/16/17 17:54 Blood Blood Culture Pending Received 02/16/17 17:43 Blood Blood Culture Pending Received Assessment & Plan 71 yo F with 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 She recently moved to [place] after receiving a poor prognosis with respect to her cancer and had moved in with one of her children; Home Hospice was in process prior to admission. In the ER she was foudn to have a pneumonia and with recently being admitted to a hospital in [place], she was started on Zosyn fro HCAP empirically. She is feeling well today and reports no recent h/o coughing, fevers, chills, SOB, chest pain or feeling ill at all. She is a very poor historian, however, and keeps changing her story. I have tried to contact her family and left my cell number but have not heard back yet. 1. HCAP-on Zosyn and doing well clinically. Oxygenating well on room air and no conversational dyspnea. She was afebrile overnight. Blood cultures are pending. 2. Seizures-on Dilantin and cannot get a clear history on if she has been compliant with this or not, however, she says she has. She states that her kids give her meds. Dilantin level was low last night and a dose was given with normalization of level this morning. Neuro has been consulted to assist with dosing and monitoring. 3. IDDM-on insulin for years according to her. Glucose is controlled. Will consult pharmacy to assist with glycemic management. 4. Leukocytosis 2/2 infection-cont treatment as above. 5. RCC with mets-my current understanding of this is that she was being set up for Home Hospice. Will wait to hear from family on this and will involve Palliative Care nurse to help with logistics,etc. 6. CKD-Stage III. Uncertain of her baseline. She is able to eat and drink on her own so will hold on fluids. Will get some urine studies and I have requested records from her previous hospital which I am still awaiting. DVT proph: will add heparin DNR at this time. I have not spoken to the family yet but will clarify the wishes. Dispo-uncertain at this time. DO [facility] Hospitalist Consultants: Neuro, PT/OT Current Inpatient Medications: Current Inpatient Medications Medications (Trade) Dose Ordered Sig/Toney Route Start Time Stop Time Status Last Admin Dose Admin Acetaminophen (Tylenol Tab) 650 mg Q4H PRN PO 02/16/17 21:15 03/18/17 21:14 Insulin Aspart (novoLOG ASPART) SLIDING SCALE If C... ACHS SC 02/17/17 06:30 03/19/17 06:59 Glucose (Glucose 40% Gel) 15-30 GRAMS 15 GRAMS... UD PRN PO 02/16/17 21:15 03/18/17 21:14 Glucose (Glucose Chew Tab) 4-8 Tablets 4 Tabl... UD PRN PO 02/16/17 21:15 03/18/17 21:14 Dextrose (Dextrose 50% 50ML Syringe) 25-50ML OF 50% DW IV FOR... UD PRN IV 02/16/17 21:15 03/18/17 21:14 Glucagon (Glucagon Inj) 1 mg UD PRN SQ 02/16/17 21:15 03/18/17 21:14 Atorvastatin Calcium (Lipitor Tab) 80 mg DAILY PO 02/17/17 08:00 03/19/17 08:59 02/17/17 07:59 80 MG Docusate Sodium (coLACE CAP) 100 mg BID PO 02/17/17 08:00 03/19/17 08:59 02/17/17 07:58 100 MG Lidocaine (Lidoderm Patch 5%) 1 patch DAILY TD 02/17/17 08:00 03/19/17 08:59 02/17/17 08:00 1 PATCH Phenytoin Sodium (Dilantin Er Cap) 300 mg HS PO 02/17/17 21:00 03/19/17 20:59 Ranitidine HCl (zANTac TAB) 150 mg BID PO 02/17/17 08:00 03/19/17 08:59 02/17/17 07:59 150 MG Miscellaneous (Remove Lidoderm Patch) 1 ea DAILY@21 N/A 02/17/17 21:00 03/19/17 20:59 Piperacillin Sod/ Tazobactam Sod (Consult) 1 ea UD PRN N/A 02/17/17 09:00 03/19/17 08:59 Hydromorphone HCl (Dilaudid Inj) 0.5 mg Q3H PRN IV 02/16/17 21:15 03/02/17 21:14 Oxycodone/ Acetaminophen (Percocet 5-325mg Tab) 1 tab Q6H PRN PO 02/16/17 21:15 03/02/17 21:14 Ondansetron HCl (Zofran Inj) 4 mg Q6H PRN IV 02/16/17 21:15 03/18/17 21:14 Dextrose (Dextrose 50% 50ML Syringe) 25-50ML OF 50% DW IV FOR... UD PRN IV 02/16/17 21:15 03/18/17 21:14 Lorazepam 1 mg/ Syringe 1 ml @ 0.5 mls/min Q5M PRN IV 02/16/17 21:30 03/18/17 21:29 Ipratropium [place] (Atrovent 0.02% 0.5MG/2.5ML Neb) 0.5 mg Q4H PRN INH 02/16/17 21:45 03/18/17 21:44 Levalbuterol (Xopenex 1.25MG/ 0.5ML Neb) 1.25 mg Q4H PRN INH 02/16/17 21:45 03/18/17 21:44 Piperacillin Sod/ Tazobactam Sod 3.375 gm/Dextrose 115 ml @ 28.75 mls/ hr Q8H IV 02/17/17 00:00 02/24/17 00:00 02/17/17 07:58 28.75 MLS/HR Diphenhydramine HCl (Benadryl Cap) 25 mg Q6H PRN PO 02/17/17 00:30 03/19/17 00:29 02/17/17 06:35 25 MG Miconazole Nitrate (Desenex Powder) 1 appln PRN PRN EXT 02/17/17 06:15 03/19/17 06:14 Insulin Glargine (Lantus Solostar Pen) 10 unit HS SQ 02/17/17 21:00 03/19/17 08:59
[2017-02-17] MEDS ORDERED: PHARMACY GLYCEMIC MGMT CONSULT PRN (14:47)
--- NOTE | 2017-02-17 14:54 | Pharmacy Progress Note ---
Glycemic Control Intl Consult Date of Service Feb 17, 2017. Scope Glycemic Pharmacist consulted by Dr Loya on 02/17/2017 for glycemic control and to write orders per [facility] inpatient glycemic control protocol Objective Weight (Kilograms): 79.600 Accuchecks BSG (last 24hrs): Test 02/16/17 17:54 02/16/17 22:09 02/16/17 23:05 02/17/17 05:21 Random Glucose 126 mg/dl (70-99) 189 mg/dl (70-99) Bedside Glucose 134 mg/dl (70-90) 134 mg/dl (70-90) Test 02/17/17 07:42 02/17/17 11:32 Bedside Glucose 158 mg/dl (70-90) 192 mg/dl (70-90) Laboratory Data (last 24hrs) Test 02/16/17 17:54 02/16/17 18:06 02/17/17 05:21 Anion Gap 10.0 mmol/L 10.0 mmol/L BUN/Creatinine Ratio 8.8 9.8 Blood Urea Nitrogen 15 mg/dl 18 mg/dl Creatinine 1.70 mg/dl 1.80 mg/dl Potassium Level 3.9 mmol/L 4.0 mmol/L Sodium Level 138 mmol/L 140 mmol/L White Blood Count 18.84 K/uL 19.44 K/uL Red Blood Count 4.96 M/uL 4.27 M/uL Hemoglobin 14.5 g/dL 12.2 g/dL Hematocrit 43.9 % 38.0 % Mean Corpuscular Volume 88.5 fL 89.0 fL Mean Corpuscular Hemoglobin 29.2 pg 28.6 pg Mean Corpuscular Hemoglobin Concent 33.0 g/dl 32.1 g/dl Platelet Count 271 K/uL 251 K/uL Mean Platelet Volume 9.2 fL 9.4 fL Neutrophils (%) (Auto) 93.3 % 92.0 % Lymphocytes (%) (Auto) 3.5 % 2.9 % Monocytes (%) (Auto) 2.5 % 4.7 % Eosinophils (%) (Auto) 0.3 % 0.0 % Basophils (%) (Auto) 0.1 % 0.1 % Neutrophils # (Auto) 17.57 K/uL 17.88 K/uL Lymphocytes # (Auto) 0.66 K/uL 0.57 K/uL Monocytes # (Auto) 0.48 K/uL 0.92 K/uL Eosinophils # (Auto) 0.06 K/uL 0.00 K/uL Basophils # (Auto) 0.01 K/uL 0.02 K/uL Hemoglobin A1c 7.2 % HbA1c Test 02/16/17 18:06 Hemoglobin A1c 7.2 % (4.5-5.6) H Recent Pertinent Medications Outpatient Anti-diabetic Regimen: * Basaglar Insulin 18 units qHS The patient is currently receiving: * Basal insulin: Lantus 10 units every 24 hours (in the evening) * Correctional Insulin: Novolog Correction per scale ACHS Goal Range: Low 140 mg/dL - High 180 mg/dL Correction Factor: 25 mg/dL/unit * Prandial insulin: Per carb ratio of 1 unit per ---- grams CHO consumed Risk Factors for Insulin Resistance: * Steroids: Solu-Medrol 40 mg IV x 1 on 02/16/17 * Infection: Pneumonia on Zosyn * Diet: type 2 diabetic diet Assessment & Plan ASSESSMENT: * ADA & AACE recommend a goal blood sugar range 140-180 mg/dl for the majority of critically ill & non-critically ill patients. However, more stringent targets may be selected in individual cases. Will utilize more stringent goal of 120-160 mg/dl based on patient age & comorbidities. Additionally, tighter glycemic control is warranted to facilitate wound/infection healing. * Ms Alcaraz is a 71 y/o F admitted for altered MS and suspected PNA (hospital acquired vs aspiration) She has a PMH significant for stage IV kidney CA; she moved to [place] this past Wednesday. * The patient received a reduce dose of Lantus yesterday evening; her morning fasting was elevated at 158 mg/dL which indicates a higher dose of Lantus can be tolerated. Her blood sugars also increased from breakfast to lunch indicating that more prandial insulin is needed. I will utilized weight-based stress of 2 dosing for both basal and prandial insulin. PLAN FOR INPATIENT GLYCEMIC CONTROL: * Basal insulin with LANTUS 15 units SQ qHS * Correctional Insulin with NOVOLOG / REGULAR per scale ACHS * Goal Range: Low 120 mg/dL - High 160 mg/dL * Correction Factor: 30 mg/dL/unit * Nutritional / Prandial insulin per carb ratio of 1 unit per 10 grams CHO consumed * Please note that the plan above was derived based on current level of insulin resistance and hospital stress. These recommendations are appropriate for inpatient admission only. Plan of care upon discharge will need to be reassessed to avoid potential outpatient hypo/hyperglycemia. Thank you.
--- NOTE | 2017-02-17 15:21 | Neurology Consultation ---
Neurology Consultation Date of Consultation: Feb 17, 2017. 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 She recently moved to [place] after receiving a poor prognosis with respect to her cancer and had moved in with one of her children. Home hospice has been contacted to help the family with care. A CXR revealed pneumonia and Zosyn was started due to a recent admission in [place]. She states she has had seizure prior to her brain mets but it is unclear if this is true. She states she takes Keppra for her seizures and not dilantin. She continues to scratch at her face and arms during exam. denies CP, SOB, abdominal pain, weakness, numbness tingling, N, V. She states she is no longer on chemo therapy "I just stopped taking it" Past Medical/Surgical History Medical Problems: (1) Altered mental state Status: Acute (2) Fever Status: Acute (3) Pneumonia Status: Acute Social History Smokeless Tobacco Use: Unknown Occupation Status: retired Allergies Coded Allergies: Morphine (Verified Allergy, Unknown, 0, 02/16/17) Current Inpatient Medications Current Inpatient Medications Medications (Trade) Dose Ordered Sig/Toney Route Start Time Stop Time Status Last Admin Dose Admin Acetaminophen (Tylenol Tab) 650 mg Q4H PRN PO 02/16/17 21:15 03/18/17 21:14 Insulin Aspart (novoLOG ASPART) SLIDING SCALE If C... ACHS SC 02/17/17 06:30 03/19/17 06:59 02/17/17 13:17 1 UNITS Glucose (Glucose 40% Gel) 15-30 GRAMS 15 GRAMS... UD PRN PO 02/16/17 21:15 03/18/17 21:14 Glucose (Glucose Chew Tab) 4-8 Tablets 4 Tabl... UD PRN PO 02/16/17 21:15 03/18/17 21:14 Dextrose (Dextrose 50% 50ML Syringe) 25-50ML OF 50% DW IV FOR... UD PRN IV 02/16/17 21:15 03/18/17 21:14 Glucagon (Glucagon Inj) 1 mg UD PRN SQ 02/16/17 21:15 03/18/17 21:14 Atorvastatin Calcium (Lipitor Tab) 80 mg DAILY PO 02/17/17 08:00 03/19/17 08:59 02/17/17 07:59 80 MG Docusate Sodium (coLACE CAP) 100 mg BID PO 02/17/17 08:00 03/19/17 08:59 02/17/17 07:58 100 MG Lidocaine (Lidoderm Patch 5%) 1 patch DAILY TD 02/17/17 08:00 03/19/17 08:59 02/17/17 08:00 1 PATCH Phenytoin Sodium (Dilantin Er Cap) 300 mg HS PO 02/17/17 21:00 03/19/17 20:59 Ranitidine HCl (zANTac TAB) 150 mg BID PO 02/17/17 08:00 03/19/17 08:59 02/17/17 07:59 150 MG Miscellaneous (Remove Lidoderm Patch) 1 ea DAILY@21 N/A 02/17/17 21:00 03/19/17 20:59 Piperacillin Sod/ Tazobactam Sod (Consult) 1 ea UD PRN N/A 02/17/17 09:00 03/19/17 08:59 Hydromorphone HCl (Dilaudid Inj) 0.5 mg Q3H PRN IV 02/16/17 21:15 03/02/17 21:14 Oxycodone/ Acetaminophen (Percocet 5-325mg Tab) 1 tab Q6H PRN PO 02/16/17 21:15 03/02/17 21:14 Ondansetron HCl (Zofran Inj) 4 mg Q6H PRN IV 02/16/17 21:15 03/18/17 21:14 Dextrose (Dextrose 50% 50ML Syringe) 25-50ML OF 50% DW IV FOR... UD PRN IV 02/16/17 21:15 03/18/17 21:14 Lorazepam 1 mg/ Syringe 1 ml @ 0.5 mls/min Q5M PRN IV 02/16/17 21:30 03/18/17 21:29 Ipratropium [place] (Atrovent 0.02% 0.5MG/2.5ML Neb) 0.5 mg Q4H PRN INH 02/16/17 21:45 03/18/17 21:44 Levalbuterol (Xopenex 1.25MG/ 0.5ML Neb) 1.25 mg Q4H PRN INH 02/16/17 21:45 03/18/17 21:44 Piperacillin Sod/ Tazobactam Sod 3.375 gm/Dextrose 115 ml @ 28.75 mls/ hr Q8H IV 02/17/17 00:00 02/24/17 00:00 02/17/17 07:58 28.75 MLS/HR Diphenhydramine HCl (Benadryl Cap) 25 mg Q6H PRN PO 02/17/17 00:30 03/19/17 00:29 02/17/17 06:35 25 MG Miconazole Nitrate (Desenex Powder) 1 appln PRN PRN EXT 02/17/17 06:15 03/19/17 06:14 Miscellaneous Information (Consult Glycemic Management Pharmacy) 1 ea UD PRN N/A 02/17/17 14:47 03/19/17 14:46 Enteral Nutritional Formula (Boost Glucose Control) 1 can QDD PO 02/17/17 17:00 03/19/17 16:59 Insulin Glargine (Lantus Solostar Pen) 15 unit HS SQ 02/17/17 21:00 03/19/17 20:59 Heparin Sodium (Porcine) (Heparin Sq 5000 Unit/0.5ml) 5,000 unit Q8H SQ 02/17/17 15:00 03/19/17 14:59 UNV Physical Exam Vital Signs (Past 24 Hrs): Date Time Temp Pulse Resp B/P (MAP) Pulse Ox O2 Delivery O2 Flow Rate FiO2 02/17/17 14:39 36.8 91 20 100/63 (75) 94 02/17/17 11:10 36.2 87 18 96/61 (73) 97 Room Air 02/17/17 08:30 92 Room Air 02/17/17 07:07 36.5 85 20 106/69 (81) 92 Room Air 02/17/17 00:01 Room Air 02/16/17 23:11 83 18 93 Room Air 02/16/17 21:53 36.8 101 16 98/61 Room Air 02/16/17 21:45 36.8 101 16 98/61 (73) 88 02/16/17 21:19 94 Room Air 02/16/17 21:05 37.8 110 22 123/73 02/16/17 20:05 114 20 133/77 99 Nasal Cannula 4.0 02/16/17 19:02 113 24 127/90 94 Nasal Cannula 3.0 02/16/17 18:58 39.0 02/16/17 18:46 138 154/82 02/16/17 18:29 138 02/16/17 17:32 92 Room Air 02/16/17 17:23 37.8 140 24 180/101 92 Room Air Physical Exam: Constitutional:appearance nourished, healthy and normal Ears, Nose, Mouth and Throat: mucous membranes moist, no injection and skin normal, eyes normal Cardiovascular: systolic murmur Respiratory: clear to auscultation (CTA) and no rales, rhonchi or wheeze Musculoskeletal: no peripheral edema and good distal pulses Skin: no stigmata of neurocutaneous disease noted and normal and intact, some rash on abdomen arms Eyes: extraocular muscles intact (EOMI) and pupils equal, round and reactive to light (PERRL) NEUROLOGIC EXAMINATION: Mental status: Alert and interactive Oriented no oriented to place thinks she is at home. then reoriented, knows it is 2016 and January. can say no ifs ands or buts and stick out tongue, close eyes point to ceiling Oriented to person Speech fluent with no evidence of aphasia Cranial Nerves smile eye brow raise symmetric tongue midline Reflexes: Deep tendon reflexes were symmetrical and graded 2/5. Sensory: no sensory deficits to vibration or cool light touch, GT proprioception intact Coordination: finger to nose without bi pass, no tremor or cogwheeling Gait/Stance: Posture lying in bed Motor: Negative for pronator drift of out stretched arms with eyes closed. Strength: biceps triceps hand jack prizer bilaterally 5/5, hip flex right 3/4 halted with pain, plantar flex ext 5/5. left hip flex 5/5 plantar flex ext 5/5 Laboratory Results Past 24 Hours: 02/17/17 05:21 Red Blood Count 4.27, Mean Corpuscular Volume 89.0, Mean Corpuscular Hemoglobin 28.6, Mean Corpuscular Hemoglobin Concent 32.1, Mean Platelet Volume 9.4, Neutrophils (%) (Auto) 92.0, Lymphocytes (%) (Auto) 2.9, Monocytes (%) (Auto) 4.7, Eosinophils (%) (Auto) 0.0, Basophils (%) (Auto) 0.1, Neutrophils # (Auto) 17.88, Lymphocytes # (Auto) 0.57, Monocytes # (Auto) 0.92, Eosinophils # (Auto) 0.00, Basophils # (Auto) 0.02 02/17/17 05:21 Test 02/16/17 17:54 02/16/17 18:06 02/16/17 19:02 02/16/17 19:54 Prothrombin Time 11.0 SECONDS (9.0-12.0) Prothromb Time International Ratio 1.0 (0.9-1.1) Activated Partial Thromboplast Time 28.2 SECONDS (21.0-31.0) Partial Thromboplastin Ratio 1.1 Magnesium Level 1.7 mg/dl (1.8-2.4) Total Bilirubin 0.3 mg/dl (0.2-1) Direct Bilirubin 0.1 mg/dl (0-0.2) Aspartate Amino Transf (AST/SGOT) 66 U/L (15-37) Alanine Aminotransferase (ALT/SGPT) 26 U/L (12-78) Alkaline Phosphatase 130 U/L (45-117) Ammonia < 10.0 umol/L (11-32) Total Creatine Kinase 26 U/L (26-192) Creatine Kinase MB < 0.5 ng/ml (0.5-3.6) Creatine Kinase MB Ratio (0-3.0) Troponin I 0.020 ng/ml (0-0.045) Total Protein 8.0 gm/dl (6.4-8.2) Albumin 2.7 gm/dl (3.4-5.0) Lipase 83 U/L (73-393) Thyroid Stimulating Hormone (TSH) 2.090 uIu/ml (0.300-4.500) Estimated Average Glucose 160 mg/dl Hemoglobin A1c 7.2 % (4.5-5.6) Urine Color YELLOW Urine Appearance CLOUDY (CLEAR) Urine pH 5.0 (4.5-7.5) Urine Specific [place] 1.021 (1.000-1.030) Urine Protein 2+ (NEG) Urine Glucose (UA) NEG (NEG) Urine Ketones 1+ (NEG) Urine Occult Blood NEG (NEG) Urine Nitrite NEG (NEG) Urine Bilirubin NEG (NEG) Urine Urobilinogen NEG (NEG) Urine Leukocyte Esterase NEG (NEG) Urine WBC (Auto) 1-5 /hpf (0-5) Urine RBC (Auto) 0-4 /hpf (0-4) Urine Hyaline Casts (Auto) 1-5 /lpf (0-5) Urine Epithelial Cells (Auto) >30 /lpf (0-5) Urine Bacteria (Auto) NEG (NEG) Lactic Acid Level 1.4 mmol/L (0.4-2.0) Test 02/16/17 20:21 02/17/17 05:21 02/17/17 11:32 Arterial Blood pH 7.43 (7.35-7.45) Arterial Blood Partial Pressure CO2 37 mmHg (35-46) Arterial Blood Partial Pressure O2 66 mm/Hg (80-95) Arterial Blood HCO3 24 mmol/L (19-24) Arterial Blood Oxygen Saturation 92.4 % (90-95) Arterial Blood Base Excess 0.3 mEq/L (-9-1.8) Arterial Blood Gas Delivery ROOM AIR Jerel Test POS (POS) White Blood Count 19.44 K/uL (4.8-10.8) Red Blood Count 4.27 M/uL (4.2-5.4) Hemoglobin 12.2 g/dL (12.0-16.0) Hematocrit 38.0 % (37-47) Mean Corpuscular Volume 89.0 fL (80-100) Mean Corpuscular Hemoglobin 28.6 pg (25-34) Mean Corpuscular Hemoglobin Concent 32.1 g/dl (32-36) Platelet Count 251 K/uL (130-400) Mean Platelet Volume 9.4 fL (7.4-10.4) Neutrophils (%) (Auto) 92.0 % Lymphocytes (%) (Auto) 2.9 % Monocytes (%) (Auto) 4.7 % Eosinophils (%) (Auto) 0.0 % Basophils (%) (Auto) 0.1 % Neutrophils # (Auto) 17.88 K/uL (1.4-6.5) Lymphocytes # (Auto) 0.57 K/uL (1.2-3.4) Monocytes # (Auto) 0.92 K/uL (0.11-0.59) Eosinophils # (Auto) 0.00 K/uL (0-0.5) Basophils # (Auto) 0.02 K/uL (0-0.2) RDW Standard Deviation 69.4 fL (36.4-46.3) RDW Coefficient of Variation 22.0 % (11.5-14.5) Immature Granulocyte % (Auto) 0.3 % Immature Granulocyte # (Auto) 0.05 K/uL (0.00-0.02) Anisocytosis PRESENT Anion Gap 10.0 mmol/L (3-11) Est Creatinine Clear Calc Drug Dose 30.9 ml/min Estimated GFR () 32.5 Estimated GFR (Non- 28.0 BUN/Creatinine Ratio 9.8 (10-20) Calcium Level 9.3 mg/dl (8.5-10.1) Phenytoin (Dilantin) Level 10.5 mcg/mL (10-20) Bedside Glucose 192 mg/dl (70-90) Imaging CT head Age-related chronic small vessel change. No acute process. Impression 71 year old with terminal cancer seizure activity Plan 1. dilantin currently therapeutic- patient states she was on Keppra in the past? ? 2. pneumonia -treat with appropriate antibiotic 3. hospice set up with family 4. unclear what is making her itch would watch for rash. If not previously on dilantin ?? or Zosyn which was started since admission 5. MRI in patient records shows brain lesions 6. no further imaging necessary 7. PT/OT if needed 8. which ever seizure medication is needed keep therapeutic 9. EEG pending read I have seen and discussed above patient with Dr Moe Roque, neurology I have seen this patient reviewed her history her imaging and eeg and labs diagnosis of metastatic renal cell ca to credit director by mri ( current noncontrast ct not revealing but with enhancement may well have shown mets ). eeg generally slow non focal and no clear cut focal or generalized potentially epileptogenic activity seen but the history coupled with an initial subtherapeutic dph level would certainly suggest a breakthrough seizure with her currently very confused mental status and slow eeg being compatible with a postictal state Dph now therapeutic so would continue dose and do periodic spot check of levels once discharged Neurology at this point has little more to offer as she is apparently a hospice type patient, is not getting chemo or rt and further diagnostic studies in this setting are not indicated If seizures recur with therapeutic dilantin levels then keppra should be added at 500 bid We will check back tomorrow Moe Roque MD
[2017-02-17] MEDS: BOOST GLUCOSE CONTROL PO SCH (17:35)
[2017-02-17] MEDS: TRIAMCINOLONE ACET 0.1% CR 80 GM TUBE EXT SCH (18:37)
[2017-02-17 20:17] VITALS: BP 118/70; PULSE 85; TEMP 36.3; O2SAT 96
[2017-02-17] MEDS: PHENYTOIN SODIUM ER 100 MG CAP PO SCH (20:23)
[2017-02-17] MEDS: INSULIN GLARGINE SOLOSTAR 100 UNITS/ML 3 ML PEN SQ SCH (21:33)
[2017-02-17] MEDS: HEPARIN SOD 5000 UNIT/0.5 ML CARP SQ SCH (21:34)
[2017-02-17 23:05] VITALS: BP 119/72; PULSE 95; TEMP 36.8; O2SAT 97
[2017-02-18] VITALS (7 sets, daily range): BP systolic 122–150; BP diastolic 69–82; PULSE 52–111; TEMP 36.7–36.9; O2SAT 94–99; BMI 28.0
[2017-02-18] MEDS: HEPARIN SOD 5000 UNIT/0.5 ML CARP SQ SCH ×3 (06:00→20:28)
[2017-02-18] MEDS: TRIAMCINOLONE ACET 0.1% CR 80 GM TUBE EXT SCH ×2 (06:00→17:53)
[2017-02-18 06:05] LABS: BASO % 0.2 %; BASO ABS # 0.02 K/uL (0-0.2); EOS % 2.8 %; HEMATOCRIT 33.8 % (37-47); IG% 0.4 %; LYMPH % 9.5 %; LYMPH ABS # 0.93 K/uL (1.2-3.4); MEAN CELL VOLUME 87.3 fL (80-100); MEAN CORPUSCULAR HEMOGLOBIN 27.9 pg (25-34); MEAN PLATELET VOLUME 8.5 fL (7.4-10.4); MONO % 12.2 %; NEUT % 74.9 %; PLATELET COUNT 245 K/uL (130-400); RED BLOOD COUNT 3.87 M/uL (4.2-5.4); WHITE BLOOD COUNT 9.75 K/uL (4.8-10.8)
[2017-02-18 06:36] LABS: CREATININE 1.9 mg/dl (0.60-1.20); POTASSIUM 4.5 mmol/L (3.5-5.1)
[2017-02-18 06:41] LABS: ANISOCYTOSIS PRESENT; COMPLETE YES
[2017-02-18 07:06] LABS: CALCIUM 9.1 mg/dl (8.5-10.1)
[2017-02-18] MEDS: RANITIDINE HCL 150 MG TAB PO SCH ×2 (07:42→20:16)
[2017-02-18] MEDS: ATORVASTATIN 40 MG TAB PO SCH (07:42)
[2017-02-18] MEDS: LIDODERM (LIDOCAINE) PATCH 5% TD SCH (07:42)
[2017-02-18] MEDS: DOCUSATE SODIUM 100 MG CAP PO SCH ×2 (07:42→20:16)
[2017-02-18] MEDS: PIPERACILL/TAZOBAC IV 3.375 GM in DEXTROSE 5% 100ML IV SCH ×2 (07:48→16:45)
[2017-02-18] MEDS: INSULIN ASPART 100 UNITS/ML 3 ML PEN SC SCH ×4 (08:55→20:14)
--- NOTE | 2017-02-18 10:50 | Palliative Care Consultation ---
Consultation Date of Consultation: Feb 18, 2017. Requesting Physician: Dr. Loya Attending Physician: Dr. Loya Reason for Consultation: Goals of care, hospice History of Present Illness This 71 year old female patient presented two evenings ago with c/o decreased responsiveness. History obtained from record as patient is very confused and no family at bedside at this time. I did review most of the records from [facility] in [place], where patient is from. Patient has a diagnosis of renal cell carcinoma with metastases to the brain. She was living at home by herself in [place], after her about a year ago. Essentially what happened is the patient was found wedged between the couch and wall by a neighbor. She was taken to the hospital, found to have compression fractures. She actually had two hospital stays, one in December and one in January. Patient had some compression fractures from the fall. Hospital stay was a complicated with new seizures, CVA, intubation, PEG tube, and ICU stay. Patient was previously on chemotherapy but it was discontinued while in hospital and decision was apparently made to not pursue further treatment. Patient was given a poor prognosis. Her children decided to bring her back to [place] upon discharge to live with her daughter, Whit, and pursue home hospice. She was supposed to be admitted to hospice two days ago, but she was found by a family member to be unresponsive. Here in the ED, CT of head was negative for anything acute, CXR showed RUL pneumonia- assumed to be healthcare associated. She is being treated with Zosyn. She had EEG done, evaluated by neurology who state a breakthrough seizure given her postictal-like state and the slowing of the EEG. Her Dilantin level was subtherapeutic, now is therapeutic. They suggested adding Keppra if further seizure-like activity, but none since admission. The plan is still apparently for patient to go home with daughter, Whit, and receive hospice care. Palliative care consulted to establish goals of care and coordinate hospice services in conjunction with case management. I met with the patient in room 406. She is awake, alert and very pleasant. However, she is quite disoriented and could not give me a straightforward answer on a single question, including how many children she has. Her speech has a word-searching/expressive aphasia-like pattern; sometimes could not finish a sentence. She was able to tell me she is going to live with her daughter "Lara," then corrected herself and said "Whit." Patient said, "I have no idea," when asked the current month and year. Couldn't recall much about her medical history at all but she did say she came to [place] to live with her daughter and have hospice. She agreed this was still the plan and she said Whit could make decisions for her. She denies any pain, nausea, vomiting or other discomforts. Only stated she is itchy on her buttocks and back where she has a rash. I called and left a message on Whit Wednesday's phone, left my cell for her to call back. Past Medical/Surgical History Medical History: IDDM Hypertension RCC with mets to brain Chronic pain Seizure CKD stage III Neuropathy Anxiety Depression Patient with systolic murmur- states she's had it since she was 18 Surgical History: Nephrectomy 10/23/2016 Tonsillectomy Carpal tunnel Tubal ligation Social History Smoking Status: Former Smoker Occupation Status: retired (could not be reliably obtained) Review of Systems Constitutional: + weakness Respiratory: No cough, No sputum, No wheezing, No shortness of breath Cardiac: No chest pain, No edema Abdomen: No pain, No nausea, No vomiting Musculoskeletal: + problem reported (denies back pain) Neurologic: + memory loss Skin: + rash, + itch (truck and buttocks) Allergies Coded Allergies: Morphine (Verified Allergy, Unknown, 0, 02/16/17) Medications Current Inpatient Medications Medications (Trade) Dose Ordered Sig/Toney Route Start Time Stop Time Status Last Admin Dose Admin Acetaminophen (Tylenol Tab) 650 mg Q4H PRN PO 02/16/17 21:15 03/18/17 21:14 02/18/17 06:07 650 MG Insulin Aspart (novoLOG ASPART) SLIDING SCALE If C... ACHS SC 02/17/17 06:30 03/19/17 06:59 02/18/17 08:55 4 UNITS Glucose (Glucose 40% Gel) 15-30 GRAMS 15 GRAMS... UD PRN PO 02/16/17 21:15 03/18/17 21:14 Glucose (Glucose Chew Tab) 4-8 Tablets 4 Tabl... UD PRN PO 02/16/17 21:15 03/18/17 21:14 Dextrose (Dextrose 50% 50ML Syringe) 25-50ML OF 50% DW IV FOR... UD PRN IV 02/16/17 21:15 03/18/17 21:14 Glucagon (Glucagon Inj) 1 mg UD PRN SQ 02/16/17 21:15 03/18/17 21:14 Atorvastatin Calcium (Lipitor Tab) 80 mg DAILY PO 02/17/17 08:00 03/19/17 08:59 02/18/17 07:42 80 MG Docusate Sodium (coLACE CAP) 100 mg BID PO 02/17/17 08:00 03/19/17 08:59 02/18/17 07:42 100 MG Lidocaine (Lidoderm Patch 5%) 1 patch DAILY TD 02/17/17 08:00 03/19/17 08:59 02/18/17 07:42 1 PATCH Phenytoin Sodium (Dilantin Er Cap) 300 mg HS PO 02/17/17 21:00 03/19/17 20:59 02/17/17 20:23 300 MG Ranitidine HCl (zANTac TAB) 150 mg BID PO 02/17/17 08:00 03/19/17 08:59 02/18/17 07:42 150 MG Miscellaneous (Remove Lidoderm Patch) 1 ea DAILY@21 N/A 02/17/17 21:00 03/19/17 20:59 Piperacillin Sod/ Tazobactam Sod (Consult) 1 ea UD PRN N/A 02/17/17 09:00 03/19/17 08:59 Hydromorphone HCl (Dilaudid Inj) 0.5 mg Q3H PRN IV 02/16/17 21:15 03/02/17 21:14 Oxycodone/ Acetaminophen (Percocet 5-325mg Tab) 1 tab Q6H PRN PO 02/16/17 21:15 03/02/17 21:14 02/17/17 23:43 1 TAB Ondansetron HCl (Zofran Inj) 4 mg Q6H PRN IV 02/16/17 21:15 03/18/17 21:14 Dextrose (Dextrose 50% 50ML Syringe) 25-50ML OF 50% DW IV FOR... UD PRN IV 02/16/17 21:15 03/18/17 21:14 Lorazepam 1 mg/ Syringe 1 ml @ 0.5 mls/min Q5M PRN IV 02/16/17 21:30 03/18/17 21:29 Ipratropium [place] (Atrovent 0.02% 0.5MG/2.5ML Neb) 0.5 mg Q4H PRN INH 02/16/17 21:45 03/18/17 21:44 Levalbuterol (Xopenex 1.25MG/ 0.5ML Neb) 1.25 mg Q4H PRN INH 02/16/17 21:45 03/18/17 21:44 Piperacillin Sod/ Tazobactam Sod 3.375 gm/Dextrose 115 ml @ 28.75 mls/ hr Q8H IV 02/17/17 00:00 02/24/17 00:00 02/18/17 07:48 28.75 MLS/HR Diphenhydramine HCl (Benadryl Cap) 25 mg Q6H PRN PO 02/17/17 00:30 03/19/17 00:29 02/17/17 21:38 25 MG Miconazole Nitrate (Desenex Powder) 1 appln PRN PRN EXT 02/17/17 06:15 03/19/17 06:14 Miscellaneous Information (Consult Glycemic Management Pharmacy) 1 ea UD PRN N/A 02/17/17 14:47 03/19/17 14:46 Enteral Nutritional Formula (Boost Glucose Control) 1 can QDD PO 02/17/17 17:00 03/19/17 16:59 02/17/17 17:35 1 CAN Insulin Glargine (Lantus Solostar Pen) 15 unit HS SQ 02/17/17 21:00 03/19/17 20:59 02/17/17 21:33 15 UNIT Heparin Sodium (Porcine) (Heparin Sq 5000 Unit/0.5ml) 5,000 unit Q8H SQ 02/17/17 22:00 03/19/17 21:59 02/18/17 06:00 5,000 UNIT Triamcinolone Acetonide (Triamcinolone Acet 0.1% Crm) 1 appln Q12H EXT 02/17/17 18:00 03/19/17 17:59 02/18/17 06:00 1 APPLN Physical Exam Date Time Temp Pulse Resp B/P (MAP) Pulse Ox O2 Delivery O2 Flow Rate FiO2 02/18/17 08:30 95 Room Air 02/18/17 07:40 36.8 88 18 139/69 (92) 95 Room Air 02/18/17 03:20 36.8 91 18 129/74 (92) 94 Room Air 02/18/17 00:00 Room Air 02/17/17 23:05 36.8 95 18 119/72 (88) 97 Room Air 02/17/17 20:17 36.3 85 19 118/70 (86) 96 Room Air 02/17/17 15:30 Room Air 02/17/17 14:39 36.8 91 20 100/63 (75) 94 02/17/17 11:10 36.2 87 18 96/61 (73) 97 Room Air General Appearance: no apparent distress ENT: hearing grossly normal Neck: supple, no JVD Respiratory: lungs clear, no respiratory distress, no accessory muscle use, + pertinent finding (room air) Cardiovascular: regular rate, rhythm, no edema, + systolic murmur, + normal peripheral pulses Abdomen: normal bowel sounds, non tender, soft Neurologic/Psychiatric: alert, normal mood/affect, oriented x 3 Skin: + rash (LLQ of abdomen, almost in fold- red rash approximately 2.5x2.5inch with closed scabs. Other areas on back and buttocks with excoriation from scratching- all closed and no open wounds noted.), + pertinent finding (left groin with dark discoloration which appears to be healing fungal infection/candidiasis) Laboratory Results Last 24 Hours Test 02/17/17 11:32 02/17/17 16:14 02/17/17 20:36 02/18/17 05:49 Bedside Glucose 192 mg/dl 120 mg/dl 175 mg/dl White Blood Count 9.75 K/uL Red Blood Count 3.87 M/uL Hemoglobin 10.8 g/dL Hematocrit 33.8 % Mean Corpuscular Volume 87.3 fL Mean Corpuscular Hemoglobin 27.9 pg Mean Corpuscular Hemoglobin Concent 32.0 g/dl Platelet Count 245 K/uL Mean Platelet Volume 8.5 fL Neutrophils (%) (Auto) 74.9 % Lymphocytes (%) (Auto) 9.5 % Monocytes (%) (Auto) 12.2 % Eosinophils (%) (Auto) 2.8 % Basophils (%) (Auto) 0.2 % Neutrophils # (Auto) 7.30 K/uL Lymphocytes # (Auto) 0.93 K/uL Monocytes # (Auto) 1.19 K/uL Eosinophils # (Auto) 0.27 K/uL Basophils # (Auto) 0.02 K/uL RDW Standard Deviation 69.5 fL RDW Coefficient of Variation 22.2 % Immature Granulocyte % (Auto) 0.4 % Immature Granulocyte # (Auto) 0.04 K/uL Anisocytosis PRESENT Sodium Level 140 mmol/L Potassium Level 4.5 mmol/L Chloride Level 107 mmol/L Carbon Dioxide Level 28 mmol/L Anion Gap 5.0 mmol/L Blood Urea Nitrogen 21 mg/dl Creatinine 1.90 mg/dl Est Creatinine Clear Calc Drug Dose 29.2 ml/min Estimated GFR () 30.4 Estimated GFR (Non- 26.3 BUN/Creatinine Ratio 11.0 Random Glucose 119 mg/dl Calcium Level 9.1 mg/dl Test 02/18/17 07:55 Bedside Glucose 113 mg/dl Assessment & Plan Problem list: Weakness Altered mental status Seizures Metastatic renal cell carcinoma s/p nephrectomy, mets to the brain Recent history of CVA Healthcare associated pneumonia- RUL Goals of care (Z51.5) Palliative care recommendations: -Per patient, her goal is for comfort and to be at home (daughter's home) with hospice. I am awaiting return phone call from patient's daughter Whit Wednesday to confirm goals of care. -Patient states she has a living will, I will request a copy from her daughter. -Referral was already made to hospice prior to arrival. Care had not been initiated due to hospital admission, but referral still in place. -Would like to do POLST form with patient prior to discharge. -She currently has no pain. Would continue the lidoderm patch. Continue to reassess for pain and can add pain relief as needed. -Does c/o itch, but she said the steroid cream is helping. Rash in left groin is mostly healed, might want to consider ordering nystatin powder. Keep area clean and dry. -For home, would order PRN sublingual lorazepam for anxiety/agitation or for seizure activity.
--- NOTE | 2017-02-18 14:12 | Clinical Documentation Query ---
CLINICAL DOCUMENTATION QUERY Dr. SPANN, The diagnosis of sepsis was originally noted on the clinical record's H/P. It has since been removed from the documentation. If your patient is being treated for sepsis, please continue to document this diagnosis throughout the record and on the discharge summary. In your clinical opinion is this patient being managed for: (x ) Patient is being/has been treated for Sepsis ( ) Patient is not being/has not been treated for Sepsis ( ) Other explanation of clinical findings (Please Explain) ( ) Unable to determine (Please Define) ( ) Need to Discuss ( ) Not Agree IF IN AGREEMENT, YOU MUST DOCUMENT ABOVE DIAGNOSTIC STATEMENT IN DAILY PROGRESS NOTES AND DISCHARGE SUMMARY. This document is not part of the patient's record. Thank You, Aure Godinez RN [phone]
[2017-02-18] MEDS ORDERED: SODIUM CHLORIDE 0.9% 1000ML 1,000 ML IV SCH (14:30)
--- NOTE | 2017-02-18 16:35 | Neurology Progress Notes ---
Neurology Progress Note Date of Service Feb 18, 2017. 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 She recently moved to [place] after receiving a poor prognosis with respect to her cancer and had moved in with one of her children. Home hospice has been contacted to help the family with care. A CXR revealed pneumonia and Zosyn was started due to a recent admission in [place]. She states she has had seizure prior to her brain mets but it is unclear if this is true. She states she takes Keppra for her seizures and not dilantin. She continues to scratch at her face and arms during exam. denies CP, SOB, abdominal pain, weakness, numbness tingling, N, V. She states she is no longer on chemo therapy "I just stopped taking it" Today she states she just wants to go home. she states she is walking to the bathroom with no difficulties. Objective Date Time Temp Pulse Resp B/P (MAP) Pulse Ox O2 Delivery O2 Flow Rate FiO2 02/18/17 15:40 96 Room Air 02/18/17 15:09 36.7 93 20 122/73 (89) 98 Room Air 02/18/17 11:44 36.7 52 18 132/78 (96) 99 Room Air 02/18/17 08:30 95 Room Air 02/18/17 07:40 36.8 88 18 139/69 (92) 95 Room Air 02/18/17 03:20 36.8 91 18 129/74 (92) 94 Room Air 02/18/17 00:00 Room Air 02/17/17 23:05 36.8 95 18 119/72 (88) 97 Room Air 02/17/17 20:17 36.3 85 19 118/70 (86) 96 Room Air Last 24 Hours Test 02/17/17 20:36 02/18/17 05:49 02/18/17 07:55 02/18/17 11:30 Bedside Glucose 175 mg/dl 113 mg/dl 184 mg/dl White Blood Count 9.75 K/uL Red Blood Count 3.87 M/uL Hemoglobin 10.8 g/dL Hematocrit 33.8 % Mean Corpuscular Volume 87.3 fL Mean Corpuscular Hemoglobin 27.9 pg Mean Corpuscular Hemoglobin Concent 32.0 g/dl Platelet Count 245 K/uL Mean Platelet Volume 8.5 fL Neutrophils (%) (Auto) 74.9 % Lymphocytes (%) (Auto) 9.5 % Monocytes (%) (Auto) 12.2 % Eosinophils (%) (Auto) 2.8 % Basophils (%) (Auto) 0.2 % Neutrophils # (Auto) 7.30 K/uL Lymphocytes # (Auto) 0.93 K/uL Monocytes # (Auto) 1.19 K/uL Eosinophils # (Auto) 0.27 K/uL Basophils # (Auto) 0.02 K/uL RDW Standard Deviation 69.5 fL RDW Coefficient of Variation 22.2 % Immature Granulocyte % (Auto) 0.4 % Immature Granulocyte # (Auto) 0.04 K/uL Anisocytosis PRESENT Sodium Level 140 mmol/L Potassium Level 4.5 mmol/L Chloride Level 107 mmol/L Carbon Dioxide Level 28 mmol/L Anion Gap 5.0 mmol/L Blood Urea Nitrogen 21 mg/dl Creatinine 1.90 mg/dl Est Creatinine Clear Calc Drug Dose 29.2 ml/min Estimated GFR () 30.4 Estimated GFR (Non- 26.3 BUN/Creatinine Ratio 11.0 Random Glucose 119 mg/dl Calcium Level 9.1 mg/dl Test 02/18/17 13:00 Urine Random Creatinine 37.0 mg/dl Urine Random Sodium 63 mEq/L Imaging: no new imaging Exam: Physical Exam: Constitutional: appearance nourished, healthy and normal Ears, Nose, Mouth and Throat: mucous membranes moist, no injection and skin normal, eyes normal Cardiovascular: systolic murmur Respiratory: clear to auscultation (CTA) and no rales, rhonchi or wheeze Musculoskeletal: no peripheral edema and good distal pulses Skin: no stigmata of neurocutaneous disease noted and normal and intact Eyes: extraocular muscles intact (EOMI) and pupils equal, round and reactive to light (PERRL), slight nystagmus to the left NEUROLOGIC EXAMINATION: Mental status: Alert and interactive Oriented to full date and location Oriented to person Speech fluent with no evidence of aphasia Cranial Nerves smile eye brow raise symmetric, tongue midline finger to nose without bi pass or tremor Gait/Stance: sitting up in bed Motor: Negative for pronator drift of out stretched arms with eyes closed. 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 ACHS SC 02/17/17 06:30 03/19/17 06:59 02/18/17 12:53 6 UNITS Glucose (Glucose 40% Gel) 15-30 GRAMS 15 GRAMS... UD PRN PO 02/16/17 21:15 03/18/17 21:14 Glucose (Glucose Chew Tab) 4-8 Tablets 4 Tabl... UD PRN PO 02/16/17 21:15 03/18/17 21:14 Dextrose (Dextrose 50% 50ML Syringe) 25-50ML OF 50% DW IV FOR... UD PRN IV 02/16/17 21:15 03/18/17 21:14 Glucagon (Glucagon Inj) 1 mg UD PRN SQ 02/16/17 21:15 03/18/17 21:14 Atorvastatin Calcium (Lipitor Tab) 80 mg DAILY PO 02/17/17 08:00 03/19/17 08:59 02/18/17 07:42 80 MG Docusate Sodium (coLACE CAP) 100 mg BID PO 02/17/17 08:00 03/19/17 08:59 02/18/17 07:42 100 MG Lidocaine (Lidoderm Patch 5%) 1 patch DAILY TD 02/17/17 08:00 03/19/17 08:59 02/18/17 07:42 1 PATCH Phenytoin Sodium (Dilantin Er Cap) 300 mg HS PO 02/17/17 21:00 03/19/17 20:59 02/17/17 20:23 300 MG Ranitidine HCl (zANTac TAB) 150 mg BID PO 02/17/17 08:00 03/19/17 08:59 02/18/17 07:42 150 MG Miscellaneous (Remove Lidoderm Patch) 1 ea DAILY@21 N/A 02/17/17 21:00 03/19/17 20:59 Piperacillin Sod/ Tazobactam Sod (Consult) 1 ea UD PRN N/A 02/17/17 09:00 03/19/17 08:59 Hydromorphone HCl (Dilaudid Inj) 0.5 mg Q3H PRN IV 02/16/17 21:15 03/02/17 21:14 Oxycodone/ Acetaminophen (Percocet 5-325mg Tab) 1 tab Q6H PRN PO 02/16/17 21:15 03/02/17 21:14 02/17/17 23:43 1 TAB Ondansetron HCl (Zofran Inj) 4 mg Q6H PRN IV 02/16/17 21:15 03/18/17 21:14 Dextrose (Dextrose 50% 50ML Syringe) 25-50ML OF 50% DW IV FOR... UD PRN IV 02/16/17 21:15 03/18/17 21:14 Lorazepam 1 mg/ Syringe 1 ml @ 0.5 mls/min Q5M PRN IV 02/16/17 21:30 03/18/17 21:29 Ipratropium [place] (Atrovent 0.02% 0.5MG/2.5ML Neb) 0.5 mg Q4H PRN INH 02/16/17 21:45 03/18/17 21:44 Levalbuterol (Xopenex 1.25MG/ 0.5ML Neb) 1.25 mg Q4H PRN INH 02/16/17 21:45 03/18/17 21:44 Piperacillin Sod/ Tazobactam Sod 3.375 gm/Dextrose 115 ml @ 28.75 mls/ hr Q8H IV 02/17/17 00:00 02/24/17 00:00 02/18/17 07:48 28.75 MLS/HR Diphenhydramine HCl (Benadryl Cap) 25 mg Q6H PRN PO 02/17/17 00:30 03/19/17 00:29 02/17/17 21:38 25 MG Miconazole Nitrate (Desenex Powder) 1 appln PRN PRN EXT 02/17/17 06:15 03/19/17 06:14 Miscellaneous Information (Consult Glycemic Management Pharmacy) 1 ea UD PRN N/A 02/17/17 14:47 03/19/17 14:46 Enteral Nutritional Formula (Boost Glucose Control) 1 can QDD PO 02/17/17 17:00 03/19/17 16:59 02/17/17 17:35 1 CAN Insulin Glargine (Lantus Solostar Pen) 15 unit HS SQ 02/17/17 21:00 03/19/17 20:59 02/17/17 21:33 15 UNIT Heparin Sodium (Porcine) (Heparin Sq 5000 Unit/0.5ml) 5,000 unit Q8H SQ 02/17/17 22:00 03/19/17 21:59 02/18/17 15:09 5,000 UNIT Triamcinolone Acetonide (Triamcinolone Acet 0.1% Crm) 1 appln Q12H EXT 02/17/17 18:00 03/19/17 17:59 02/18/17 06:00 1 APPLN Aspirin (Ecotrin Tab) 325 mg QAM PO 02/19/17 08:00 03/21/17 07:59 Sodium Chloride 1,000 ml @ 125 mls/hr Q8H IV 02/18/17 14:30 02/18/17 22:29 02/18/17 15:01 125 MLS/HR Impression 71 year old with terminal cancer seizure activity Plan 1. dilantin currently therapeutic- patient states she was on Keppra in the past could add if any further seizure 2. pneumonia -treat with appropriate antibiotic 3. hospice set up with family 4. unclear what is making her itch would watch for rash. cortisone cream helping 5. MRI in patient records shows brain lesions 6. no further imaging necessary 7. PT/OT if needed 8. EEG diffusely slowed which was likely due to post ictal state 9. she will need her PCP or through home nursing Dilantin levels monthly to keep therapeutic 10. will sign off for now call with questions concerns. I have seen and discussed above patient with Dr Moe Roque, neurology Patient seen and examined she is clearer and recovering from what I believe was a post ictal state She insists that she was compliant with the dilantin dose but if this is true then she will need levels done frequently when she returns home and the dose adjusted as needed Keppr would likely be a better drug but for now she is on the dilantin tolerating it well and would stick to the plan as soutlined above the physician who assumes her hospice care will need to adjust the meds Neurology should not really ahve to get involved unless there are problems with recurrent seizures despite therapeutic drug levels We will sign off Moe Roque MD
[2017-02-18] MEDS ORDERED: EUCERIN CR 120 GM JAR EXT PRN (16:45)
--- NOTE | 2017-02-18 17:32 | Progress Note ---
Medicine Progress Note Date & Time of Visit: Feb 18, 2017 at 14:23. 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 She recently moved to [place] after receiving a poor prognosis with respect to her cancer and had moved in with one of her children; Home Hospice was in process prior to admission. In the ER she was found to have a pneumonia and with recently being admitted to a hospital in [place], she was started on Zosyn fro HCAP empirically. After speaking with her daughter and the patient she will be going home on Hospice when there is someone at home with her 15/03. Family is considering private pay agencies. Currently afebrile, tolerating PO, mentating well, interactive with family in the room and denies any back pain or other issues. Objective Last 8 Hrs Date Time Temp Pulse Resp B/P (MAP) Pulse Ox O2 Delivery O2 Flow Rate FiO2 02/18/17 11:44 36.7 52 18 132/78 (96) 99 Room Air 02/18/17 08:30 95 Room Air 02/18/17 07:40 36.8 88 18 139/69 (92) 95 Room Air Physical Exam: GEN: WNWD, in no acute distress, alert and appropriate HEENT: NC/AT, normal sclerae, MMM CARDIO: reg rate, S1/2 heard without m/g/r LUNGS: CTA bilaterally, no crackles, rales or wheezes, good diaphragmatic excursion ABD: soft, non-tender, non-distended, no rebound or guarding, +BS EXTREMITY: no LE swelling or edema, extremities are warm and well-perfused NEURO: no gross focal deficits. MUSC: 5/5 strength throughout, no focal deficits SKIN: warm and dry Laboratory Results: 02/18/17 05:49 Red Blood Count 3.87, Mean Corpuscular Volume 87.3, Mean Corpuscular Hemoglobin 27.9, Mean Corpuscular Hemoglobin Concent 32.0, Mean Platelet Volume 8.5, Neutrophils (%) (Auto) 74.9, Lymphocytes (%) (Auto) 9.5, Monocytes (%) (Auto) 12.2, Eosinophils (%) (Auto) 2.8, Basophils (%) (Auto) 0.2, Neutrophils # (Auto ) 7.30, Lymphocytes # (Auto) 0.93, Monocytes # (Auto) 1.19, Eosinophils # (Auto ) 0.27, Basophils # (Auto) 0.02 02/18/17 05:49 Test 02/16/17 17:54 02/16/17 18:06 02/16/17 19:02 02/16/17 19:54 Prothrombin Time 11.0 SECONDS (9.0-12.0) Prothromb Time International Ratio 1.0 (0.9-1.1) Activated Partial Thromboplast Time 28.2 SECONDS (21.0-31.0) Partial Thromboplastin Ratio 1.1 Magnesium Level 1.7 mg/dl (1.8-2.4) Total Bilirubin 0.3 mg/dl (0.2-1) Direct Bilirubin 0.1 mg/dl (0-0.2) Aspartate Amino Transf (AST/SGOT) 66 U/L (15-37) Alanine Aminotransferase (ALT/SGPT) 26 U/L (12-78) Alkaline Phosphatase 130 U/L (45-117) Ammonia < 10.0 umol/L (11-32) Total Creatine Kinase 26 U/L (26-192) Creatine Kinase MB < 0.5 ng/ml (0.5-3.6) Creatine Kinase MB Ratio (0-3.0) Troponin I 0.020 ng/ml (0-0.045) Total Protein 8.0 gm/dl (6.4-8.2) Albumin 2.7 gm/dl (3.4-5.0) Lipase 83 U/L (73-393) Thyroid Stimulating Hormone (TSH) 2.090 uIu/ml (0.300-4.500) Estimated Average Glucose 160 mg/dl Hemoglobin A1c 7.2 % (4.5-5.6) Urine Color YELLOW Urine Appearance CLOUDY (CLEAR) Urine pH 5.0 (4.5-7.5) Urine Specific [place] 1.021 (1.000-1.030) Urine Protein 2+ (NEG) Urine Glucose (UA) NEG (NEG) Urine Ketones 1+ (NEG) Urine Occult Blood NEG (NEG) Urine Nitrite NEG (NEG) Urine Bilirubin NEG (NEG) Urine Urobilinogen NEG (NEG) Urine Leukocyte Esterase NEG (NEG) Urine WBC (Auto) 1-5 /hpf (0-5) Urine RBC (Auto) 0-4 /hpf (0-4) Urine Hyaline Casts (Auto) 1-5 /lpf (0-5) Urine Epithelial Cells (Auto) >30 /lpf (0-5) Urine Bacteria (Auto) NEG (NEG) Lactic Acid Level 1.4 mmol/L (0.4-2.0) Test 02/16/17 20:21 02/17/17 05:21 02/18/17 05:49 02/18/17 13:00 Arterial Blood pH 7.43 (7.35-7.45) Arterial Blood Partial Pressure CO2 37 mmHg (35-46) Arterial Blood Partial Pressure O2 66 mm/Hg (80-95) Arterial Blood HCO3 24 mmol/L (19-24) Arterial Blood Oxygen Saturation 92.4 % (90-95) Arterial Blood Base Excess 0.3 mEq/L (-9-1.8) Arterial Blood Gas Delivery ROOM AIR Jerel Test POS (POS) Phenytoin (Dilantin) Level 10.5 mcg/mL (10-20) White Blood Count 9.75 K/uL (4.8-10.8) Red Blood Count 3.87 M/uL (4.2-5.4) Hemoglobin 10.8 g/dL (12.0-16.0) Hematocrit 33.8 % (37-47) Mean Corpuscular Volume 87.3 fL (80-100) Mean Corpuscular Hemoglobin 27.9 pg (25-34) Mean Corpuscular Hemoglobin Concent 32.0 g/dl (32-36) Platelet Count 245 K/uL (130-400) Mean Platelet Volume 8.5 fL (7.4-10.4) Neutrophils (%) (Auto) 74.9 % Lymphocytes (%) (Auto) 9.5 % Monocytes (%) (Auto) 12.2 % Eosinophils (%) (Auto) 2.8 % Basophils (%) (Auto) 0.2 % Neutrophils # (Auto) 7.30 K/uL (1.4-6.5) Lymphocytes # (Auto) 0.93 K/uL (1.2-3.4) Monocytes # (Auto) 1.19 K/uL (0.11-0.59) Eosinophils # (Auto) 0.27 K/uL (0-0.5) Basophils # (Auto) 0.02 K/uL (0-0.2) RDW Standard Deviation 69.5 fL (36.4-46.3) RDW Coefficient of Variation 22.2 % (11.5-14.5) Immature Granulocyte % (Auto) 0.4 % Immature Granulocyte # (Auto) 0.04 K/uL (0.00-0.02) Anisocytosis PRESENT Anion Gap 5.0 mmol/L (3-11) Est Creatinine Clear Calc Drug Dose 29.2 ml/min Estimated GFR () 30.4 Estimated GFR (Non- 26.3 BUN/Creatinine Ratio 11.0 (10-20) Calcium Level 9.1 mg/dl (8.5-10.1) Urine Random Creatinine 37.0 mg/dl Urine Random Sodium 63 mEq/L Test 02/18/17 16:37 Bedside Glucose 70 mg/dl (70-90) Date/Time Source Procedure Growth Status 02/16/17 17:54 Blood Blood Culture - Preliminary NO GROWTH TO DATE. Resulted Last 24 Hours Test 02/17/17 16:14 02/17/17 20:36 02/18/17 05:49 02/18/17 07:55 Bedside Glucose 120 mg/dl 175 mg/dl 113 mg/dl White Blood Count 9.75 K/uL Red Blood Count 3.87 M/uL Hemoglobin 10.8 g/dL Hematocrit 33.8 % Mean Corpuscular Volume 87.3 fL Mean Corpuscular Hemoglobin 27.9 pg Mean Corpuscular Hemoglobin Concent 32.0 g/dl Platelet Count 245 K/uL Mean Platelet Volume 8.5 fL Neutrophils (%) (Auto) 74.9 % Lymphocytes (%) (Auto) 9.5 % Monocytes (%) (Auto) 12.2 % Eosinophils (%) (Auto) 2.8 % Basophils (%) (Auto) 0.2 % Neutrophils # (Auto) 7.30 K/uL Lymphocytes # (Auto) 0.93 K/uL Monocytes # (Auto) 1.19 K/uL Eosinophils # (Auto) 0.27 K/uL Basophils # (Auto) 0.02 K/uL RDW Standard Deviation 69.5 fL RDW Coefficient of Variation 22.2 % Immature Granulocyte % (Auto) 0.4 % Immature Granulocyte # (Auto) 0.04 K/uL Anisocytosis PRESENT Sodium Level 140 mmol/L Potassium Level 4.5 mmol/L Chloride Level 107 mmol/L Carbon Dioxide Level 28 mmol/L Anion Gap 5.0 mmol/L Blood Urea Nitrogen 21 mg/dl Creatinine 1.90 mg/dl Est Creatinine Clear Calc Drug Dose 29.2 ml/min Estimated GFR () 30.4 Estimated GFR (Non- 26.3 BUN/Creatinine Ratio 11.0 Random Glucose 119 mg/dl Calcium Level 9.1 mg/dl Test 02/18/17 11:30 02/18/17 13:00 Bedside Glucose 184 mg/dl Urine Random Creatinine 37.0 mg/dl Urine Random Sodium 63 mEq/L Assessment & Plan 71 yo F with 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 She recently moved to [place] [facility] after receiving a poor prognosis with respect to her cancer and had moved in with one of her children; Home Hospice was in process prior to admission. In the ER she was found to have a pneumonia and with recently being admitted to a hospital in [place], she was started on Zosyn fro HCAP empirically. After speaking with her daughter and the patient she will be going home on Hospice when there is someone at home with her 15/03. Family is considering private pay agencies. Currently afebrile, tolerating PO, mentating well, interactive with family in the room and denies any back pain or other issues. 1. HCAP-on Zosyn and doing well clinically. Oxygenating well on room air and no conversational dyspnea. She was afebrile overnight. Blood cultures are negative and WBC has resolved. 2. Seizures-therapeutic on Dilantin. h/o seizures reviewed in scanned hospital records and EEG report from January 2017 reviewed. 3. IDDM-on insulin for years according to her. Glucose is controlled. Will consult pharmacy to assist with glycemic management. 4. Leukocytosis 2/2 infection-resolved. 5. RCC with mets-plan is Home with Hospice 6. CKD-Stage III. Per prior hospital records baseline appears to be 1.5, currently 1.9. She is able to eat and drink on her own so will hold on fluids. FeNa is >2%. and creat is unchanged. Will give some IVF and repeat PRP in am. 7. h/o L cerebellar stroke-on statin and added antiplatelet therapy for stroke prophylaxis 8. s/p T8, L1 and L5 compression fractures after a fall s/p vertebroplasty. Known mets to spine. Cont to treat back pain aggressively. 9. Anemia-multifactorial, stable, no transfusion needed. Monitor DVT proph: heparin DNR at this time; will cont to medically treat issues Dispo-to Home Hospice when setup. DO [facility] Hospitalist Consultants: Neuro, PT/OT Current Inpatient Medications: Current Inpatient Medications Medications (Trade) Dose Ordered Sig/Toney Route Start Time Stop Time Status Last Admin Dose Admin Acetaminophen (Tylenol Tab) 650 mg Q4H PRN PO 02/16/17 21:15 03/18/17 21:14 02/18/17 06:07 650 MG Insulin Aspart (novoLOG ASPART) SLIDING SCALE If C... ACHS SC 02/17/17 06:30 03/19/17 06:59 02/18/17 12:53 6 UNITS Glucose (Glucose 40% Gel) 15-30 GRAMS 15 GRAMS... UD PRN PO 02/16/17 21:15 03/18/17 21:14 Glucose (Glucose Chew Tab) 4-8 Tablets 4 Tabl... UD PRN PO 02/16/17 21:15 03/18/17 21:14 Dextrose (Dextrose 50% 50ML Syringe) 25-50ML OF 50% DW IV FOR... UD PRN IV 02/16/17 21:15 03/18/17 21:14 Glucagon (Glucagon Inj) 1 mg UD PRN SQ 02/16/17 21:15 03/18/17 21:14 Atorvastatin Calcium (Lipitor Tab) 80 mg DAILY PO 02/17/17 08:00 03/19/17 08:59 02/18/17 07:42 80 MG Docusate Sodium (coLACE CAP) 100 mg BID PO 02/17/17 08:00 03/19/17 08:59 02/18/17 07:42 100 MG Lidocaine (Lidoderm Patch 5%) 1 patch DAILY TD 02/17/17 08:00 03/19/17 08:59 02/18/17 07:42 1 PATCH Phenytoin Sodium (Dilantin Er Cap) 300 mg HS PO 02/17/17 21:00 03/19/17 20:59 02/17/17 20:23 300 MG Ranitidine HCl (zANTac TAB) 150 mg BID PO 02/17/17 08:00 03/19/17 08:59 02/18/17 07:42 150 MG Miscellaneous (Remove Lidoderm Patch) 1 ea DAILY@21 N/A 02/17/17 21:00 03/19/17 20:59 Piperacillin Sod/ Tazobactam Sod (Consult) 1 ea UD PRN N/A 02/17/17 09:00 03/19/17 08:59 Hydromorphone HCl (Dilaudid Inj) 0.5 mg Q3H PRN IV 02/16/17 21:15 03/02/17 21:14 Oxycodone/ Acetaminophen (Percocet 5-325mg Tab) 1 tab Q6H PRN PO 02/16/17 21:15 03/02/17 21:14 02/17/17 23:43 1 TAB Ondansetron HCl (Zofran Inj) 4 mg Q6H PRN IV 02/16/17 21:15 03/18/17 21:14 Dextrose (Dextrose 50% 50ML Syringe) 25-50ML OF 50% DW IV FOR... UD PRN IV 02/16/17 21:15 03/18/17 21:14 Lorazepam 1 mg/ Syringe 1 ml @ 0.5 mls/min Q5M PRN IV 02/16/17 21:30 03/18/17 21:29 Ipratropium [place] (Atrovent 0.02% 0.5MG/2.5ML Neb) 0.5 mg Q4H PRN INH 02/16/17 21:45 03/18/17 21:44 Levalbuterol (Xopenex 1.25MG/ 0.5ML Neb) 1.25 mg Q4H PRN INH 02/16/17 21:45 03/18/17 21:44 Piperacillin Sod/ Tazobactam Sod 3.375 gm/Dextrose 115 ml @ 28.75 mls/ hr Q8H IV 02/17/17 00:00 02/24/17 00:00 02/18/17 07:48 28.75 MLS/HR Diphenhydramine HCl (Benadryl Cap) 25 mg Q6H PRN PO 02/17/17 00:30 03/19/17 00:29 02/17/17 21:38 25 MG Miconazole Nitrate (Desenex Powder) 1 appln PRN PRN EXT 02/17/17 06:15 03/19/17 06:14 Miscellaneous Information (Consult Glycemic Management Pharmacy) 1 ea UD PRN N/A 02/17/17 14:47 03/19/17 14:46 Enteral Nutritional Formula (Boost Glucose Control) 1 can QDD PO 02/17/17 17:00 03/19/17 16:59 02/17/17 17:35 1 CAN Insulin Glargine (Lantus Solostar Pen) 15 unit HS SQ 02/17/17 21:00 03/19/17 20:59 02/17/17 21:33 15 UNIT Heparin Sodium (Porcine) (Heparin Sq 5000 Unit/0.5ml) 5,000 unit Q8H SQ 02/17/17 22:00 03/19/17 21:59 02/18/17 06:00 5,000 UNIT Triamcinolone Acetonide (Triamcinolone Acet 0.1% Crm) 1 appln Q12H EXT 02/17/17 18:00 03/19/17 17:59 02/18/17 06:00 1 APPLN Aspirin (Ecotrin Tab) 325 mg QAM PO 02/19/17 08:00 03/21/17 07:59 UNV
--- NOTE | 2017-02-18 17:45 | EEG Procedure Note ---
EEG Procedure Note Date of Service Feb 17, 2017. Start / End Times Start Time: 11:36 AM End Time: 11:53 AM Referring Physician Portia Morales History This is a 71-year-old female with brain metastases and seizures. EEG for further evaluation of confusion and suspected seizures. Home Medication List Scheduled Atorvastatin (Lipitor), 80 MG PO DAILY Docusate Sodium (Docusate Sodium), 100 MG PO BID Insulin Glargine (Basaglar Kwikpen), 18 UNITS SQ HS Lidocaine (Lidoderm Patch 5%), 1 PATCH TD DAILY Phenytoin Sodium Extended (Phenytek), 300 MG PO HS Ranitidine Hcl (Zantac), 150 MG PO BID Scheduled PRN Acetaminophen (Tylenol), 325 MG PO Q6 PRN for Pain Inpatient Medication List Current Inpatient Medications Medications (Trade) Dose Ordered Sig/Toney Route Start Time Stop Time Status Last Admin Dose Admin Acetaminophen (Tylenol Tab) 650 mg Q4H PRN PO 02/16/17 21:15 03/18/17 21:14 02/18/17 06:07 650 MG Insulin Aspart (novoLOG ASPART) SLIDING SCALE If C... ACHS SC 02/17/17 06:30 03/19/17 06:59 02/18/17 12:53 6 UNITS Glucose (Glucose 40% Gel) 15-30 GRAMS 15 GRAMS... UD PRN PO 02/16/17 21:15 03/18/17 21:14 Glucose (Glucose Chew Tab) 4-8 Tablets 4 Tabl... UD PRN PO 02/16/17 21:15 03/18/17 21:14 Dextrose (Dextrose 50% 50ML Syringe) 25-50ML OF 50% DW IV FOR... UD PRN IV 02/16/17 21:15 03/18/17 21:14 Glucagon (Glucagon Inj) 1 mg UD PRN SQ 02/16/17 21:15 03/18/17 21:14 Atorvastatin Calcium (Lipitor Tab) 80 mg DAILY PO 02/17/17 08:00 03/19/17 08:59 02/18/17 07:42 80 MG Docusate Sodium (coLACE CAP) 100 mg BID PO 02/17/17 08:00 03/19/17 08:59 02/18/17 07:42 100 MG Lidocaine (Lidoderm Patch 5%) 1 patch DAILY TD 02/17/17 08:00 03/19/17 08:59 02/18/17 07:42 1 PATCH Phenytoin Sodium (Dilantin Er Cap) 300 mg HS PO 02/17/17 21:00 03/19/17 20:59 02/17/17 20:23 300 MG Ranitidine HCl (zANTac TAB) 150 mg BID PO 02/17/17 08:00 03/19/17 08:59 02/18/17 07:42 150 MG Miscellaneous (Remove Lidoderm Patch) 1 ea DAILY@21 N/A 02/17/17 21:00 03/19/17 20:59 Piperacillin Sod/ Tazobactam Sod (Consult) 1 ea UD PRN N/A 02/17/17 09:00 03/19/17 08:59 Hydromorphone HCl (Dilaudid Inj) 0.5 mg Q3H PRN IV 02/16/17 21:15 03/02/17 21:14 Oxycodone/ Acetaminophen (Percocet 5-325mg Tab) 1 tab Q6H PRN PO 02/16/17 21:15 03/02/17 21:14 02/17/17 23:43 1 TAB Ondansetron HCl (Zofran Inj) 4 mg Q6H PRN IV 02/16/17 21:15 03/18/17 21:14 Dextrose (Dextrose 50% 50ML Syringe) 25-50ML OF 50% DW IV FOR... UD PRN IV 02/16/17 21:15 03/18/17 21:14 Lorazepam 1 mg/ Syringe 1 ml @ 0.5 mls/min Q5M PRN IV 02/16/17 21:30 03/18/17 21:29 Ipratropium [place] (Atrovent 0.02% 0.5MG/2.5ML Neb) 0.5 mg Q4H PRN INH 02/16/17 21:45 03/18/17 21:44 Levalbuterol (Xopenex 1.25MG/ 0.5ML Neb) 1.25 mg Q4H PRN INH 02/16/17 21:45 03/18/17 21:44 Piperacillin Sod/ Tazobactam Sod 3.375 gm/Dextrose 115 ml @ 28.75 mls/ hr Q8H IV 02/17/17 00:00 02/24/17 00:00 02/18/17 07:48 28.75 MLS/HR Diphenhydramine HCl (Benadryl Cap) 25 mg Q6H PRN PO 02/17/17 00:30 03/19/17 00:29 02/17/17 21:38 25 MG Miconazole Nitrate (Desenex Powder) 1 appln PRN PRN EXT 02/17/17 06:15 03/19/17 06:14 Miscellaneous Information (Consult Glycemic Management Pharmacy) 1 ea UD PRN N/A 02/17/17 14:47 03/19/17 14:46 Enteral Nutritional Formula (Boost Glucose Control) 1 can QDD PO 02/17/17 17:00 03/19/17 16:59 02/17/17 17:35 1 CAN Insulin Glargine (Lantus Solostar Pen) 15 unit HS SQ 02/17/17 21:00 03/19/17 20:59 02/17/17 21:33 15 UNIT Heparin Sodium (Porcine) (Heparin Sq 5000 Unit/0.5ml) 5,000 unit Q8H SQ 02/17/17 22:00 03/19/17 21:59 02/18/17 15:09 5,000 UNIT Triamcinolone Acetonide (Triamcinolone Acet 0.1% Crm) 1 appln Q12H EXT 02/17/17 18:00 03/19/17 17:59 02/18/17 06:00 1 APPLN Aspirin (Ecotrin Tab) 325 mg QAM PO 02/19/17 08:00 03/21/17 07:59 Sodium Chloride 1,000 ml @ 125 mls/hr Q8H IV 02/18/17 14:30 02/18/17 22:29 02/18/17 15:01 125 MLS/HR Multi-Ingredient Ointment (Eucerin Unscented Cr) 1 appln DAILY PRN EXT 02/18/17 16:45 03/20/17 16:44 Description This is a 21 electrode EEG with a single channel dedicated to limited EKG. The electrodes were placed in accordance with the International 10-20 system. At the start of this recording the patient was in reported altered mental status. Background was poorly organized with no well formed anterior to posterior gradient. Background was composed of symmetric moderate amplitude predominantly 5-6 Hz theta frequencies with intermixed delta frequencies. Hyperventilation and photic stimulation were not done. There was no state changes or sleep transients. Interpretation This is an abnormal routine EEG secondary to diffuse moderate background disorganization and slowing. There was no electrographic seizures or epileptiform discharges. Clinical Correlation This EEG indicates a moderate encephalopathy of nonspecific etiology.
[2017-02-18] MEDS: BOOST GLUCOSE CONTROL PO SCH (17:53)
[2017-02-18] MEDS: PHENYTOIN SODIUM ER 100 MG CAP PO SCH (20:16)
[2017-02-18] MEDS: INSULIN GLARGINE SOLOSTAR 100 UNITS/ML 3 ML PEN SQ SCH (20:27)
[2017-02-19] MEDS: PIPERACILL/TAZOBAC IV 3.375 GM in DEXTROSE 5% 100ML IV SCH ×2 (00:04→07:48)
[2017-02-19] MEDS: TRIAMCINOLONE ACET 0.1% CR 80 GM TUBE EXT SCH ×2 (06:01→17:34)
[2017-02-19] MEDS: HEPARIN SOD 5000 UNIT/0.5 ML CARP SQ SCH ×2 (06:12→14:00)
[2017-02-19 06:17] VITALS: Ht 167.6 cm; Wt 79.1 kg
[2017-02-19 06:51] LABS: HEMATOCRIT 34.8 % (37-47); MEAN CELL VOLUME 87.2 fL (80-100); MEAN CORPUSCULAR HEMOGLOBIN 27.3 pg (25-34); MEAN CORPUSCULAR HGB CONC 31.3 g/dl (32-36); PLATELET COUNT 273 K/uL (130-400); RED BLOOD COUNT 3.99 M/uL (4.2-5.4); WHITE BLOOD COUNT 8.22 K/uL (4.8-10.8)
[2017-02-19 07:22] LABS: BUN/CREATININE RATIO 8.7 (10-20); CREATININE 1.8 mg/dl (0.60-1.20)
[2017-02-19 07:29] VITALS: BP 137/83; PULSE 96; TEMP 36.7; O2SAT 95
[2017-02-19 07:31] LABS: CALCIUM 9.5 mg/dl (8.5-10.1)
[2017-02-19] MEDS: DOCUSATE SODIUM 100 MG CAP PO SCH (07:48)
[2017-02-19] MEDS: ATORVASTATIN 40 MG TAB PO SCH (07:48)
[2017-02-19] MEDS: RANITIDINE HCL 150 MG TAB PO SCH (07:48)
[2017-02-19] MEDS: LIDODERM (LIDOCAINE) PATCH 5% TD SCH (07:50)
[2017-02-19] MEDS: INSULIN ASPART 100 UNITS/ML 3 ML PEN SC SCH ×3 (07:58→17:33)
[2017-02-19] MEDS ORDERED: ASPIRIN 325 MG ECTAB PO SCH (08:00)
--- NOTE | 2017-02-19 09:24 | Pharmacy Progress Note ---
Glycemic Control Progress Note Date of Service Feb 19, 2017. Scope Glycemic Pharmacist consulted for glycemic control to write orders per [facility] inpatient glycemic control protocol. Objective Accuchecks BSG (last 24hrs): Test 02/18/17 11:30 02/18/17 16:37 02/18/17 19:34 02/19/17 06:21 Bedside Glucose 184 mg/dl (70-90) 70 mg/dl (70-90) 162 mg/dl (70-90) Random Glucose 121 mg/dl (70-99) Test 02/19/17 07:54 Bedside Glucose 122 mg/dl (70-90) HbA1c: Test 02/16/17 18:06 Hemoglobin A1c 7.2 % (4.5-5.6) H Recent Pertinent Medications The patient is currently receiving: * Basal insulin: Lantus 15 units every 24 hours (BEDTIME) * Correctional Insulin: Novolog Correction per scale ACHS Goal Range: Low 120 mg/dL - High 160 mg/dL Correction Factor: 30 mg/dL/unit * Prandial insulin: Per carb ratio of 1 unit per 10 grams CHO consumed Outpatient Anti-Diabetic Meds Basal Insulin Assessment & Plan ASSESSMENT: * 71 yo M admitted with AMS, receiving treatment for pneumonia with Zosyn IV * Pt receiving SQ basal bolus insulin regimen for hyperglycemia secondary to stress/infection, dextrose IVF (Zosyn) * She did receive a one time solumedrol bolus in the ER on admission >48 hrs ago * Patient is currently receiving an average of 25 units of insulin per day * 15 units of basal insulin * 10 units of prandial/correctional insulin * BSGs ranging 70 - 184 mg/dl over the past 24hrs * Changes needed to insulin regimen: * AM Fasting BSG = 122 mg/dl. This is within goal range for patient based on inpatient targets and co-morbidities. However, I want to empirically reduce dose tonight as patient stressors decreasing. * Post-prandial BSGs are in range but as above, I want to empirically loosen CF /CR. PLAN FOR INPATIENT GLYCEMIC CONTROL: * Basal insulin: Decrease * Lantus 12 units SQ HS * Bolus insulin: Loosen * NovoLog per scale ACHS * Goal Range: Low 120 mg/dL - High 160 mg/dL * Correction Factor: 35 mg/dL/unit * Nutritional / Prandial insulin per carb ratio of 1 unit per 15 grams CHO consumed * Please note that the plan above was derived based on current level of insulin resistance and hospital stress. These recommendations are appropriate for inpatient admission only. Plan of care upon discharge will need to be reassessed to avoid potential outpatient hypo/hyperglycemia. Thank you.
[2017-02-19 11:43] VITALS: BP 144/89; PULSE 105; TEMP 37; O2SAT 98
--- NOTE | 2017-02-19 13:45 | Neurology Progress Notes ---
Neurology Progress Note Date of Service Feb 19, 2017. 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 She recently moved to [place] after receiving a poor prognosis with respect to her cancer and had moved in with one of her children. Home hospice has been contacted to help the family with care. A CXR revealed pneumonia and Zosyn was started due to a recent admission in [place]. She states she has had seizure prior to her brain mets but it is unclear if this is true. She states she takes Keppra for her seizures and not dilantin. She continues to scratch at her face and arms during exam. denies CP, SOB, abdominal pain, weakness, numbness tingling, N, V. She states she is no longer on chemo therapy "I just stopped taking it" She states she is anxious to get home. She has not heard if it will happen today. denies, CP, SOB, abdominal pain, one sided numbness tingling weakness, N , V. No further seizure activity Objective Date Time Temp Pulse Resp B/P (MAP) Pulse Ox O2 Delivery O2 Flow Rate FiO2 02/19/17 11:43 37.0 105 18 144/89 (107) 98 Room Air 02/19/17 08:00 Room Air 02/19/17 07:29 36.7 96 20 137/83 (101) 95 Room Air 02/19/17 00:00 Room Air 02/18/17 20:09 36.9 111 18 150/82 (104) 98 Room Air 02/18/17 20:00 Room Air 02/18/17 15:40 96 Room Air 02/18/17 15:09 36.7 93 20 122/73 (89) 98 Room Air Last 24 Hours Test 02/18/17 16:37 02/18/17 19:34 02/19/17 06:21 02/19/17 07:54 Bedside Glucose 70 mg/dl 162 mg/dl 122 mg/dl White Blood Count 8.22 K/uL Red Blood Count 3.99 M/uL Hemoglobin 10.9 g/dL Hematocrit 34.8 % Mean Corpuscular Volume 87.2 fL Mean Corpuscular Hemoglobin 27.3 pg Mean Corpuscular Hemoglobin Concent 31.3 g/dl RDW Standard Deviation 68.7 fL RDW Coefficient of Variation 22.4 % Platelet Count 273 K/uL Mean Platelet Volume 9.0 fL Sodium Level 141 mmol/L Potassium Level 4.0 mmol/L Chloride Level 108 mmol/L Carbon Dioxide Level 27 mmol/L Anion Gap 6.0 mmol/L Blood Urea Nitrogen 16 mg/dl Creatinine 1.80 mg/dl Est Creatinine Clear Calc Drug Dose 30.9 ml/min Estimated GFR () 32.5 Estimated GFR (Non- 28.0 BUN/Creatinine Ratio 8.7 Random Glucose 121 mg/dl Calcium Level 9.5 mg/dl Phenytoin (Dilantin) Level 8.1 mcg/mL Test 02/19/17 11:28 Bedside Glucose 120 mg/dl Imaging: no further imaging Exam: Physical Exam: Constitutional: appearance nourished, healthy and normal Ears, Nose, Mouth and Throat: mucous membranes moist, no injection and skin normal, eyes normal Cardiovascular: systolic murmur Respiratory: clear to auscultation (CTA) and no rales, rhonchi or wheeze Musculoskeletal: no peripheral edema and good distal pulses Skin: no stigmata of neurocutaneous disease noted and normal and intact Eyes: extraocular muscles intact (EOMI) and pupils equal, round and reactive to light (PERRL) NEUROLOGIC EXAMINATION: Mental status: Alert and interactive Oriented [facility], [place] Oriented to person Speech fluent with no evidence of aphasia Cranial Nerves smile eye brow raise symmetric, tongue midline Gait/Stance: Posture lying in bed Motor: Negative for pronator drift of out stretched arms with eyes closed. Strength: biceps triceps hand registered account administrator 5/5 bilaterally, hip flex plantar flex ext 5/5 Current Inpatient Medications Medications (Trade) Dose Ordered Sig/Toney Route Start Time Stop Time Status Last Admin Dose Admin Acetaminophen (Tylenol Tab) 650 mg Q4H PRN PO 02/16/17 21:15 03/18/17 21:14 02/18/17 06:07 650 MG Insulin Aspart (novoLOG ASPART) SLIDING SCALE If C... ACHS SC 02/17/17 06:30 03/19/17 06:59 02/19/17 12:55 3 UNITS Glucose (Glucose 40% Gel) 15-30 GRAMS 15 GRAMS... UD PRN PO 02/16/17 21:15 03/18/17 21:14 Glucose (Glucose Chew Tab) 4-8 Tablets 4 Tabl... UD PRN PO 02/16/17 21:15 03/18/17 21:14 Dextrose (Dextrose 50% 50ML Syringe) 25-50ML OF 50% DW IV FOR... UD PRN IV 02/16/17 21:15 03/18/17 21:14 Glucagon (Glucagon Inj) 1 mg UD PRN SQ 02/16/17 21:15 03/18/17 21:14 Atorvastatin Calcium (Lipitor Tab) 80 mg DAILY PO 02/17/17 08:00 03/19/17 08:59 02/19/17 07:48 80 MG Docusate Sodium (coLACE CAP) 100 mg BID PO 02/17/17 08:00 03/19/17 08:59 02/19/17 07:48 100 MG Lidocaine (Lidoderm Patch 5%) 1 patch DAILY TD 02/17/17 08:00 03/19/17 08:59 02/19/17 07:50 1 PATCH Ranitidine HCl (zANTac TAB) 150 mg BID PO 02/17/17 08:00 03/19/17 08:59 02/19/17 07:48 150 MG Miscellaneous (Remove Lidoderm Patch) 1 ea DAILY@21 N/A 02/17/17 21:00 03/19/17 20:59 Piperacillin Sod/ Tazobactam Sod (Consult) 1 ea UD PRN N/A 02/17/17 09:00 03/19/17 08:59 Hydromorphone HCl (Dilaudid Inj) 0.5 mg Q3H PRN IV 02/16/17 21:15 03/02/17 21:14 Oxycodone/ Acetaminophen (Percocet 5-325mg Tab) 1 tab Q6H PRN PO 02/16/17 21:15 03/02/17 21:14 02/17/17 23:43 1 TAB Ondansetron HCl (Zofran Inj) 4 mg Q6H PRN IV 02/16/17 21:15 03/18/17 21:14 Dextrose (Dextrose 50% 50ML Syringe) 25-50ML OF 50% DW IV FOR... UD PRN IV 02/16/17 21:15 03/18/17 21:14 Lorazepam 1 mg/ Syringe 1 ml @ 0.5 mls/min Q5M PRN IV 02/16/17 21:30 03/18/17 21:29 Ipratropium [place] (Atrovent 0.02% 0.5MG/2.5ML Neb) 0.5 mg Q4H PRN INH 02/16/17 21:45 03/18/17 21:44 Levalbuterol (Xopenex 1.25MG/ 0.5ML Neb) 1.25 mg Q4H PRN INH 02/16/17 21:45 03/18/17 21:44 Piperacillin Sod/ Tazobactam Sod 3.375 gm/Dextrose 115 ml @ 28.75 mls/ hr Q8H IV 02/17/17 00:00 02/24/17 00:00 02/19/17 07:48 28.75 MLS/HR Diphenhydramine HCl (Benadryl Cap) 25 mg Q6H PRN PO 02/17/17 00:30 03/19/17 00:29 02/17/17 21:38 25 MG Miconazole Nitrate (Desenex Powder) 1 appln PRN PRN EXT 02/17/17 06:15 03/19/17 06:14 Miscellaneous Information (Consult Glycemic Management Pharmacy) 1 ea UD PRN N/A 02/17/17 14:47 03/19/17 14:46 Enteral Nutritional Formula (Boost Glucose Control) 1 can QDD PO 02/17/17 17:00 03/19/17 16:59 02/18/17 17:53 1 CAN Heparin Sodium (Porcine) (Heparin Sq 5000 Unit/0.5ml) 5,000 unit Q8H SQ 02/17/17 22:00 03/19/17 21:59 02/19/17 06:12 5,000 UNIT Triamcinolone Acetonide (Triamcinolone Acet 0.1% Crm) 1 appln Q12H EXT 02/17/17 18:00 03/19/17 17:59 02/19/17 06:01 1 APPLN Aspirin (Ecotrin Tab) 325 mg QAM PO 02/19/17 08:00 03/21/17 07:59 02/19/17 07:52 325 MG Multi-Ingredient Ointment (Eucerin Unscented Cr) 1 appln DAILY PRN EXT 02/18/17 16:45 03/20/17 16:44 Insulin Glargine (Lantus Solostar Pen) 12 units HS SQ 02/19/17 21:00 03/21/17 20:59 Phenytoin Sodium (Dilantin Er Cap) 400 mg HS PO 02/19/17 21:00 03/19/17 20:59 Impression 71 year old with terminal cancer seizure activity Plan 1. dilantin currently therapeutic- patient states she was on Keppra in the past could add if any further seizure 2. pneumonia -treat with appropriate antibiotic 3. hospice set up with family 4. unclear what is making her itch would watch for rash. cortisone cream helping 5. MRI in patient records shows brain lesions 6. no further imaging necessary 7. PT/OT if needed 8. EEG diffusely slowed which was likely due to post ictal state 9. she will need her PCP or through home nursing Dilantin levels monthly to keep therapeutic please give hospice and family instructions for seizure protocol: Dilantin level once per month keeping level between 10-20- hospice MD for any further adjustments. should call 911 if seizure lasts longer than 5 minutes or if repeated 2 or more seizure in a row. ativan prn may be use to stop seizure activity 1 mg at onset and one additional dose if needed. If seizures do not stop call 911. patient should not be left alone, no swimming or bathing alone. Hospice protocol for care and training I have seen and discussed above patient with Dr Moe Roque, neurology Above reviewed dose of dilantin at home may be inadequate so the daily dose has been raised to 400 mg as per orders She needs to have levels monitored as above outlined by hospice md and staff once this is set up if levels continue to fluctuate as they often do with dilantin then swithc to keppra would be the next step at a dose of 500 bid Moe Roque MD
--- NOTE | 2017-02-19 14:29 | Palliative Care Progress Note ---
Palliative Care Progress Note Date of Service Feb 19, 2017. Subjective Pt evaluation today including: conversation w/ patient, conversation w/ family (daughter, Whit), physical exam, chart review, conversation w/ technical support consultant Pain: 0/10 PO Intake: tolerating diet Voiding: no voiding problems -Patient is awake and alert. Still confused, did not remember our conversation yesterday. -Denies pain or discomfort at all. She said, "I'm feeling better actually." -Spoke with patient's daughter, Whit, on phone. She confirmed that goal is for comfort and to stay out of the hospital. Plan is for home hospice. Whit is working on hiring caregivers for during the day - while she is at work. She had some questions about the logistics of hospice which I did answer. Unfortunately, Whit, will not be coming to the hospital today while I'm still here in order to do a POLST form. has been keeping her well- updated on patient's condition and treatment. She denied any further questions. Review of Systems Constitutional: No weakness Respiratory: No cough, No shortness of breath Cardiac: No chest pain, No edema Abdomen: No pain, No nausea, No vomiting Female : No problem reported Neurologic: + memory loss Psychiatric: No anxiety Objective Vital Signs Date Time Temp Pulse Resp B/P (MAP) Pulse Ox O2 Delivery O2 Flow Rate FiO2 02/19/17 11:43 37.0 105 18 144/89 (107) 98 Room Air 02/19/17 08:00 Room Air 02/19/17 07:29 36.7 96 20 137/83 (101) 95 Room Air 02/19/17 00:00 Room Air 02/18/17 20:09 36.9 111 18 150/82 (104) 98 Room Air 02/18/17 20:00 Room Air 02/18/17 15:40 96 Room Air 02/18/17 15:09 36.7 93 20 122/73 (89) 98 Room Air Physical Exam General Appearance: no apparent distress ENT: hearing grossly normal Neck: supple, no JVD Respiratory/Chest: no respiratory distress, no accessory muscle use, + rhonchi (few, fine in RUL) Cardiovascular: regular rate, rhythm, + systolic murmur, + normal peripheral pulses Abdomen: normal bowel sounds, non tender, soft Neurologic/Psychiatric: alert, normal mood/affect, + disoriented Laboratory Results Last 24 Hours Test 02/18/17 16:37 02/18/17 19:34 02/19/17 06:21 02/19/17 07:54 Bedside Glucose 70 mg/dl 162 mg/dl 122 mg/dl White Blood Count 8.22 K/uL Red Blood Count 3.99 M/uL Hemoglobin 10.9 g/dL Hematocrit 34.8 % Mean Corpuscular Volume 87.2 fL Mean Corpuscular Hemoglobin 27.3 pg Mean Corpuscular Hemoglobin Concent 31.3 g/dl RDW Standard Deviation 68.7 fL RDW Coefficient of Variation 22.4 % Platelet Count 273 K/uL Mean Platelet Volume 9.0 fL Sodium Level 141 mmol/L Potassium Level 4.0 mmol/L Chloride Level 108 mmol/L Carbon Dioxide Level 27 mmol/L Anion Gap 6.0 mmol/L Blood Urea Nitrogen 16 mg/dl Creatinine 1.80 mg/dl Est Creatinine Clear Calc Drug Dose 30.9 ml/min Estimated GFR () 32.5 Estimated GFR (Non- 28.0 BUN/Creatinine Ratio 8.7 Random Glucose 121 mg/dl Calcium Level 9.5 mg/dl Phenytoin (Dilantin) Level 8.1 mcg/mL Test 02/19/17 11:28 Bedside Glucose 120 mg/dl Assessment and Plan Problem list: Weakness Altered mental status Seizures Metastatic renal cell carcinoma s/p nephrectomy, mets to the brain Recent history of CVA Healthcare associated pneumonia- RUL Goals of care (Z51.5) Palliative care recommendations: -Plan is for home with hospice once home is set-up and she is medically cleared. -Goal is for patient to stay out of the hospital and to be comfortable. -Still receiving treatment for HCAP at this time. -No seizure activity since admission. Dilantin level 8.1 today, dose increased from 300 to 400mg. Neurology following. -Patient has used PO tylenol and PO Percocet since admission to hospital. Last percocet was 02/17. Last tylenol was 02/18. She is currently denying any pain at all. Could continue the script for PRN Percocet for home. Hospice can increase pain meds as needed at home. -For home, would order PRN sublingual lorazepam for anxiety/agitation or for seizure activity. Thank you again for allowing me to participate in the care of this nice patient and her daughter. Please contact me with any further palliative care needs. Continued [facility] stay due to: multiple IV medications needed Discharge planning: home with Hospice
[2017-02-19 15:34] VITALS: BP 153/81; PULSE 99; TEMP 36.5; O2SAT 98
[2017-02-19 15:51] VITALS: BP 153/81; PULSE 99; TEMP 36.5; O2SAT 98
[2017-02-19] MEDS ORDERED: DLN100 PO (15:51)
[2017-02-19] MEDS ORDERED: AMOX1TAB42 PO (15:51)
[2017-02-19] MEDS ORDERED: ASPEC325 PO (15:51)
--- NOTE | 2017-02-19 15:56 | Discharge Instructions ---
Discharge Instructions Date of Service Feb 19, 2017. Admission Reason for Admission: Sepsis Discharge Discharge Diagnosis / Problem: Sepsis 2/2 HCAP, RCC w/ mets Discharge Goals Goal(s): Decrease discomfort Activity Recommendations Activity Limitations: per Instructions/Follow-up section . Instructions / Follow-Up Instructions / Follow-Up Meds were reviewed with your daughter by phone. Take them as recommended, but this may vary with how you feel. The goal of Hospice is to maximize your comfort. Per conversation with your daughter I have not set up a formal follow-up appointment with anyone in the clinic for follow-up but will send a copy of your hospital course so they are aware of what is going on. It was a pleasure taking care of you! Call if you have any questions or problems. You can reach a [facility] hospitalist on duty at [facility] 24 hours a day by calling [phone]. Take care of yourself. Isabel Loya DO [facility] Hospitalist Current Hospital Diet Patient's current hospital diet: Diabetes Type 2 Diet Discharge Diet Recommended Diet: Diabetes Type 2 Diet Procedures Procedures Performed: EEG-02/18 Pending Studies Studies pending at discharge: no List of pending studies: Final blood cultures, preliminary were negative. Laboratory Results Hemoglobin A1c Test 02/16/17 18:06 Range/Units Estimated Average Glucose 160 mg/dl Hemoglobin A1c 7.2 H 4.5-5.6 % Medical Emergencies . Who to Call and When: Medical Emergencies: If at any time you feel your situation is an emergency, please call 911 immediately. . Non-Emergent Contact Non-Emergency issues call your: Primary Care Provider . . "Provider Documentation" section prepared by Isabel Loya. . VTE Core Measure Inpt VTE Proph given/why not?: Unfractionated heparin SQ
--- NOTE | 2017-02-19 16:01 | Discharge Summary ---
Discharge Summary Date of Service Feb 19, 2017. Discharge Summary Admission Date: Feb 16, 2017 at 20:44 Discharge Date: Feb 19, 2017 Discharge Disposition: Home with services (Hospice) Principal Diagnosis: Sepsis 2/2 HCAP-resuscitated Seizures IDDM Leukocytosis RCC with mets CKD-Stage III. h/o L cerebellar stroke s/p T8, L1 and L5 compression fractures after a fall s/p vertebroplasty Anemia Procedures: EEG-02/18 Vaccinations: None. Consultations: Neuro, PT/OT Pending Studies/Follow-Up: see instructions below Medication Reconciliation New Medications: Amoxicillin & Pot Clavulanate (Amoxicillin/Clavulanate P) 1 Tab Tab 500 MG PO BIDM for 5 Days, #10 TAB Aspirin (Aspirin) 325 Mg Ectab 325 MG PO QAM for 30 Days, #30 TAB Phenytoin Sodium (Dilantin) 100 Mg Cap 400 MG PO HS for 30 Days, #30 CAP Continued Medications: Acetaminophen (Tylenol) 325 Mg Tab 325 MG PO Q6 PRN for Pain, TAB Atorvastatin (Lipitor) 80 Mg Tab 80 MG PO DAILY, TAB Insulin Glargine (Basaglar Kwikpen) 100 Unit/Ml Inj 18 UNITS SQ HS Ranitidine Hcl (Zantac) 150 Mg Tab 150 MG PO BID, TAB Discontinued Medications: Docusate Sodium (Docusate Sodium) 100 Mg Cap 100 MG PO BID, CAP Lidocaine (Lidoderm Patch 5%) 1 Ea Tdsy 1 PATCH TD DAILY KEEP ON 12 HRS, REMOVER 12 HRS, APPLY TO BACK Phenytoin Sodium Extended (Phenytek) 300 Mg Cap 300 MG PO HS, CAP Admission Information HPI (per Admitting provider): Recent confinement 2 weeks ago at [place], [place] for unresponsiveness. As per daughter, patient was intubated for airway protection. MRI showed new brain metastases from renal cell cancer. Patient was also thought to have had a seizure. Discharge on Dilantin prescription. Unable to comply. Patient moved to [facility] to be cared for by her daughter. Arrangements for home hospice had been initiated by new PCPs office. Yesterday afternoon patient noted by brother to have decreased responsiveness. Patient subsequently woke up had emesis episodes. At the ER patient given Zosyn for pneumonia. Patient currently more awake but disoriented. Physical Exam (per Admitting): General Appearance: no apparent distress, + pertinent finding (disoriented, looks younger than stated age) Head: normocephalic Eyes: sclerae normal Neck: supple Respiratory/Chest: + decreased breath sounds Cardiovascular: + tachycardia Abdomen/GI: soft Neurologic/Psych: + disoriented Skin: normal color Hospital Course 71 yo F with 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 She recently moved to [place] after receiving a poor prognosis with respect to her cancer and had moved in with one of her children; Home Hospice was in process prior to admission. In the ER she was found to have a pneumonia and with recently being admitted to a hospital in [place], she was started on Zosyn for HCAP empirically. After speaking with her daughter and the patient she will be going home on Hospice when there is someone at home with her 15/03. Family is considering private pay agencies. She clinically improved and was transitioned to PO antibiotics and did well over the next couple of days. By day of discharge she was afebrile, tolerating PO, mentating well, interactive with family in the room and denies any back pain or other issues. 1. HCAP-on Zosyn and doing well clinically. Oxygenating well on room air and no conversational dyspnea. She was afebrile overnight. Blood cultures are negative and WBC has resolved. 2. Seizures-therapeutic on Dilantin. h/o seizures reviewed in scanned hospital records and EEG report from January 2017 reviewed. Per Neuro, this was increased to 400mg PO QHS 3. IDDM-on insulin for years according to her. Glucose is controlled. Will consult pharmacy to assist with glycemic management. 4. Leukocytosis 2/2 infection-resolved. 5. RCC with mets-plan is Home with Hospice 6. CKD-Stage III. Per prior hospital records baseline appears to be 1.5, currently 1.9. She is able to eat and drink on her own so will hold on fluids. FeNa is >2%. and creat is unchanged. Will give some IVF and repeat PRP in am. Creat was still 1.8 on discharge with no urinary obstruction in this euvolemic patient. This was considered acceptable considering her disposition. 7. h/o L cerebellar stroke-on statin and added antiplatelet therapy for stroke prophylaxis 8. s/p T8, L1 and L5 compression fractures after a fall s/p vertebroplasty. Known mets to spine. Cont to treat back pain aggressively. Pain reportedly controlled per patient. 9. Anemia-multifactorial, stable, no transfusion needed. Total time spent on discharge = 60 minutes This includes examination of the patient, discharge planning, medication reconciliation, and communication with other providers. Discharge Instructions Discharge Instructions Date of Service Feb 19, 2017. Admission Reason for Admission: Sepsis Discharge Discharge Diagnosis / Problem: Sepsis 2/2 HCAP, RCC w/ mets Discharge Goals Goal(s): Decrease discomfort Activity Recommendations Activity Limitations: per Instructions/Follow-up section . Instructions / Follow-Up Instructions / Follow-Up Meds were reviewed with your daughter by phone. Take them as recommended, but this may vary with how you feel. The goal of Hospice is to maximize your comfort. Per conversation with your daughter I have not set up a formal follow-up appointment with anyone in the clinic for follow-up but will send a copy of your hospital course so they are aware of what is going on. It was a pleasure taking care of you! Call if you have any questions or problems. You can reach a [facility] hospitalist on duty at [facility] 24 hours a day by calling [phone]. Take care of yourself. Isabel Loya, DO [facility] Additional Copies To Yohana Melendez D.O.
[2017-02-19] MEDS: BOOST GLUCOSE CONTROL PO SCH (17:00)
[2017-02-19] MEDS ORDERED: AMOXICILLIN/CLAVULANATE TAB 500 MG TAB PO SCH (17:00)
[2017-02-19] MEDS ORDERED: INSULIN GLARGINE SOLOSTAR 100 UNITS/ML 3 ML PEN SQ SCH (21:00)
[2017-02-19] MEDS ORDERED: PHENYTOIN SODIUM ER 100 MG CAP PO SCH (21:00)
== END 2017-02-19 18:32 | disposition hospice, home (50) | DRG 871 ==
LOC: EDBD 17:13 → C.EDB 17:14 → C.4E 20:44 → ENRESERV 20:55
PROVIDERS: ADMIT Hospitalist; ATTEND Hospitalist
DX: A41.9 Sepsis, unspecified organism (principal); J18.9 Pneumonia, unspecified organism; G93.40 Encephalopathy, unspecified; C79.31 Secondary malignant neoplasm of brain; C64.9 Malignant neoplasm of unspecified kidney, except renal pelvis; E11.9 Type 2 diabetes mellitus without complications; R09.02 Hypoxemia; D64.9 Anemia, unspecified; R56.9 Unspecified convulsions; Z86.73 Personal history of transient ischemic attack (TIA), and cerebral infarction without residual deficits; N18.3 Chronic kidney disease, stage 3 (moderate); Z79.4 Long term (current) use of insulin; Z87.891 Personal history of nicotine dependence; Z51.5 Encounter for palliative care